=== PATIENT | female | born 1945 | race Caucasian/White ===

== ENCOUNTER → 2017-01-05 | Outpatient (CLI) | payer BC ==
[~2017-01-05] MED LIST: AMLO-110 PO; ATOR-22 PO; CALC-20 PO; CYCL5TAB PO; FLV1 PO; HYDR0.5T PO; HYDR25TA4 PO; METH2.5T PO; MULT-506 PO; OMEP40CA PO; POTA20TA16 PO; PRD/1 PO; PRED-301 PO; RMCI IV; TRAM-10 PO
[2017-01-05 16:11] LABS: BASO % 0.7 %; BASO ABS # 0.05 K/uL (0-0.2); COMPLETE YES; EOS % 3.5 %; HEMATOCRIT 43.7 % (37-47); IG% 0.4 %; LYMPH % 36.3 %; LYMPH ABS # 2.78 K/uL (1.2-3.4); MEAN CELL VOLUME 90.3 fL (80-100); MEAN CORPUSCULAR HEMOGLOBIN 30.4 pg (25-34); MEAN CORPUSCULAR HGB CONC 33.6 g/dl (32-36); MEAN PLATELET VOLUME 12.3 fL (7.4-10.4); NEUT % 51.1 %; PLATELET COUNT 227 K/uL (130-400); RED BLOOD COUNT 4.84 M/uL (4.2-5.4); WHITE BLOOD COUNT 7.65 K/uL (4.8-10.8)
[2017-01-05 18:10] LABS: ALT/SGPT 29 U/L (12-78); AST/SGOT 21 U/L (15-37); BLOOD UREA NITROGEN 26 mg/dl (7-18); BUN/CREATININE RATIO 18.7 (10-20); CALCIUM 9.3 mg/dl (8.5-10.1); CARBON DIOXIDE 28 mmol/L (21-32); CHLORIDE 108 mmol/L (98-107); CHOLESTEROL 193 mg/dl (0-200); GLUCOSE 85 mg/dl (70-99); POTASSIUM 3.6 mmol/L (3.5-5.1); SODIUM 143 mmol/L (136-145)
[2017-01-05 18:15] LABS: ALB/GLOB RATIO 1.2 (0.9-2); ALKALINE PHOSPHATASE 49 U/L (45-117); CHOLESTEROL/HDL RATIO 2.8; HDL CHOLESTEROL 70 mg/dl; LDL CHOLESTEROL CALCULATED 97 mg/dl; TRIGLYCERIDES 131 mg/dl (0-150); VERY LOW DENSITY LIPOPROT CALC 26 mg/dl
== END | disposition home or self-care (01) ==
LOC: C.LABBC 10:27
PROVIDERS: ATTEND Family Medicine
DX: E78.00 Pure hypercholesterolemia, unspecified (principal); I10 Essential (primary) hypertension; K21.9 Gastro-esophageal reflux disease without esophagitis; M85.80 Other specified disorders of bone density and structure, unspecified site; M06.9 Rheumatoid arthritis, unspecified

== ENCOUNTER → 2017-04-03 | Outpatient (CLI) | payer BC ==
--- NOTE | 2017-04-05 12:34 | MAMMOGRAPHY REPORT ---
BILATERAL DIGITAL SCREENING MAMMOGRAM WITH CAD: 04/03/2017 CLINICAL HISTORY: Routine screening. Patient has no complaints. TECHNIQUE: Bilateral CC, MLO and left XCCL views were obtained. Current study was also evaluated wit h a Computer Aided Detection (CAD) system. COMPARISON: Comparison is made to exams dated: 03/22/2016 mammogram, 03/18/2015 mammogram, 09/10/2013 mammogram, 09/03/2013 mammogram, 08/29/2012 mammogram, and 08/09/2011 mammogram - [facility]. BREAST COMPOSITION: There are scattered areas of fibroglandular density in both breasts. 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 A stable metallic biopsy marker in the le ft upper outer quadrant. No new suspicious mass, architectural distortion or cluster of suspicious m icrocalcifications is seen. IMPRESSION: ACR BI-RADS CATEGORY 1: NEGATIVE There is no mammographic evidence of malignancy. A 1 year screening mammogram is recommended. The pa tient will receive written notification of the results. Approximately 10% of breast cancers are not detected with mammography. A negative mammographic report should not delay biopsy if a clinically suggestive mass is present. Mercedez Luna M.D. ay/:04/03/2017 15:31:23 Credit And Collections Analyst: Zehra KELLY(Heri)(Tammie)(BD), [facility] letter sent: Normal 1/2 BI-RADS Code: ACR BI-RADS Category 1: Negative
== END | disposition home or self-care (01) ==
LOC: C.MAMM 14:52
PROVIDERS: ATTEND Obstetrics & Gynecology
DX: Z12.31 Encounter for screening mammogram for malignant neoplasm of breast (principal)

== ENCOUNTER → 2017-05-15 | Outpatient (CLI) | payer BC | END | disposition home or self-care (01) | LOC: C.PAPS 15:59 | PROVIDERS: ATTEND Obstetrics & Gynecology | DX: Z01.419 Encounter for gynecological examination (general) (routine) without abnormal findings (principal) ==

== ENCOUNTER → 2017-06-12 | Outpatient (CLI) | payer BC ==
[2017-06-12 17:23] LABS: HEMATOCRIT 45.8 % (37-47); MEAN CELL VOLUME 91.1 fL (80-100); MEAN CORPUSCULAR HEMOGLOBIN 29.4 pg (25-34); MEAN CORPUSCULAR HGB CONC 32.3 g/dl (32-36); MEAN PLATELET VOLUME 12.5 fL (7.4-10.4); PLATELET COUNT 237 K/uL (130-400); RED BLOOD COUNT 5.03 M/uL (4.2-5.4); WHITE BLOOD COUNT 9.31 K/uL (4.8-10.8)
== END | disposition home or self-care (01) ==
LOC: C.LABPVFM 15:28
PROVIDERS: ATTEND Internal Medicine
DX: M06.09 Rheumatoid arthritis without rheumatoid factor, multiple sites (principal)

== ENCOUNTER → 2017-07-18 | Outpatient (CLI) | payer BC ==
[2017-07-18 14:02] LABS: ALKALINE PHOSPHATASE 53 U/L (45-117); ALT/SGPT 28 U/L (12-78); AST/SGOT 20 U/L (15-37); BLOOD UREA NITROGEN 19 mg/dl (7-18); BUN/CREATININE RATIO 15.7 (10-20); CALCIUM 9.6 mg/dl (8.5-10.1); CARBON DIOXIDE 27 mmol/L (21-32); CHLORIDE 108 mmol/L (98-107); CHOLESTEROL 183 mg/dl (0-200); CHOLESTEROL/HDL RATIO 2.9; CREATININE 1.21 mg/dl (0.60-1.20); GLUCOSE 84 mg/dl (70-99); HDL CHOLESTEROL 63 mg/dl; LDL CHOLESTEROL CALCULATED 93 mg/dl; POTASSIUM 3.4 mmol/L (3.5-5.1); SODIUM 142 mmol/L (136-145); TRIGLYCERIDES 136 mg/dl (0-150); VERY LOW DENSITY LIPOPROT CALC 27 mg/dl
== END | disposition home or self-care (01) ==
LOC: C.LABPVFM 10:18
PROVIDERS: ATTEND Family Medicine
DX: M06.9 Rheumatoid arthritis, unspecified (principal); I10 Essential (primary) hypertension; E78.00 Pure hypercholesterolemia, unspecified; E87.6 Hypokalemia; K21.9 Gastro-esophageal reflux disease without esophagitis; M25.551 Pain in right hip

== ENCOUNTER → 2017-12-27 | Outpatient (CLI) | payer BC ==
[2017-12-27 16:40] LABS: ALBUMIN 3.5 gm/dl (3.4-5.0); ALT/SGPT 27 U/L (12-78); AST/SGOT 23 U/L (15-37); BLOOD UREA NITROGEN 22 mg/dl (7-18); CALCIUM 9.8 mg/dl (8.5-10.1); CARBON DIOXIDE 29 mmol/L (21-32); CREATININE 1.33 mg/dl (0.60-1.20); GLUCOSE 92 mg/dl (70-99); POTASSIUM 3.8 mmol/L (3.5-5.1); SODIUM 139 mmol/L (136-145)
[2017-12-27 16:44] LABS: ALKALINE PHOSPHATASE 57 U/L (45-117); CHOLESTEROL 182 mg/dl (0-200); LDL CHOLESTEROL CALCULATED 90 mg/dl; TOTAL PROTEIN 7.2 gm/dl (6.4-8.2)
== END | disposition home or self-care (01) ==
LOC: C.LABPVFM 09:17
PROVIDERS: ATTEND Family Medicine
DX: I10 Essential (primary) hypertension (principal); E78.00 Pure hypercholesterolemia, unspecified; E87.6 Hypokalemia; K21.9 Gastro-esophageal reflux disease without esophagitis; Z12.11 Encounter for screening for malignant neoplasm of colon

== ENCOUNTER → 2018-05-23 | Outpatient (CLI) | payer BC ==
[~2018-05-23] MED LIST changes: -AMLO-110 PO; +AMLO5TAB3 PO; +POTA-639 PO; -POTA20TA16 PO
== END | disposition home or self-care (01) ==
LOC: C.PAPS 14:06
PROVIDERS: ATTEND Obstetrics & Gynecology
DX: Z01.419 Encounter for gynecological examination (general) (routine) without abnormal findings (principal)

== ENCOUNTER 2022-04-22 10:08 | Observation (INO) ==
--- NOTE | 2022-03-17 10:14 | PAT Medication Instructions ---
Medication Instructions Date of Service March 17, 2022 Home Medications calcium carbonate 600 mg-vitamin D3 5 mcg (200 unit) capsule (Calcium 600 + D(3)) 1 tab PO BID methotrexate sodium 2.5 mg tablet 3 tab PO WK omeprazole 20 mg tablet,delayed release 20 mg PO BID folic acid 1 mg tablet 1 mg PO 6XWK multivitamin 1 tab PO QAM prednisone 5 mg tablet 5 mg PO QAM infliximab 100 mg intravenous solution (Remicade) 400 mg IV UD PRN hydroxychloroquine 200 mg tablet 200 - 300 mg PO UD amlodipine 5 mg tablet 5 mg PO QAM nfejpwm-tvpdsbmckgrwx-pkuvfmcq 250 mg-250 mg-65 mg tablet (Excedrin Extra Strength) 1 tab PO UD PRN atorvastatin 10 mg tablet 10 mg PO QAM hydrochlorothiazide 12.5 mg tablet 12.5 mg PO QAM potassium chloride 20 mEq tablet,extended release(part/cryst) (Klor-Con M) 20 meq PO QAM ASK your surgeon for instructions apugrei-ajkmamwobpnif-rutyjddl 250 mg-250 mg-65 mg tablet (Excedrin Extra Strength) 1 tab PO UD PRN ASK your prescriber and surgeon methotrexate sodium 2.5 mg tablet 3 tab PO WK hydroxychloroquine 200 mg tablet 200 - 300 mg PO UD infliximab 100 mg intravenous solution (Remicade) 400 mg IV UD PRN DO NOT take the morning of surgery calcium carbonate 600 mg-vitamin D3 5 mcg (200 unit) capsule (Calcium 600 + D(3)) 1 tab PO BID folic acid 1 mg tablet 1 mg PO 6XWK multivitamin 1 tab PO QAM hydrochlorothiazide 12.5 mg tablet 12.5 mg PO QAM potassium chloride 20 mEq tablet,extended release(part/cryst) (Klor-Con M) 20 meq PO QAM Take morning of surgery With a small sip of water, OTHERWISE NOTHING TO EAT OR DRINK AFTER MIDNIGHT: omeprazole 20 mg tablet,delayed release 20 mg PO BID prednisone 5 mg tablet 5 mg PO QAM amlodipine 5 mg tablet 5 mg PO QAM atorvastatin 10 mg tablet 10 mg PO QAM Take evening before surgery calcium carbonate 600 mg-vitamin D3 5 mcg (200 unit) capsule (Calcium 600 + D(3)) 1 tab PO BID omeprazole 20 mg tablet,delayed release 20 mg PO BID Other Notes If you have any questions please call us at [phone] or [phone] or [phone] or [phone]
--- NOTE | 2022-03-22 14:15 | Anesthesiology Consultation ---
Date of Service March 22, 2022 Assessment & Plan (1) Encounter for pre-operative examination: COVID screening: Per assessment on 03/22: No known COVID-19 positive contacts or current COVID-19 related symptoms. Travel screen negative. Patient vaccinated. Surgeon arranging preop COVID testing. Awaiting results. Chart Review Chart Review: Acceptable Risk for Surgery and Patient seen in Pre Admission Testing Teaching & Discussion Pre-Anesthesia Teaching/Discussion Notes: Instructed NPO after midnight before surgery,except medications with 15 cc of water. Medication instructions provided according to the PAT guidelines. History Surgery Operation Date: 04/22/22 12:25 Proposed Procedures p Left Total Knee Arthroplasty - Malcolm Fisher, Height/Weight Height: 5 ft 3 in Weight: 93.6 kg Allergies Allergy/AdvReac Type Severity Reaction Status Date / Time No Known Allergies Allergy Verified 03/16/22 14:11 Medications Home Medications Medication Instructions Recorded Confirmed Last Taken calcium carbonate 600 mg-vitamin 1 tab PO BID 08/30/18 03/16/22 09/12/18 09:00 D3 5 mcg (200 unit) capsule (Calcium 600 + D(3)) methotrexate sodium 2.5 mg tablet 3 tab PO WK 08/30/18 03/16/22 09/08/18 09:00 omeprazole 20 mg tablet,delayed 20 mg PO BID 08/30/18 03/16/22 09/13/18 11:00 release folic acid 1 mg tablet 1 mg PO 6XWK tab 05/21/19 03/16/22 Unknown multivitamin 1 tab PO QAM tab 05/21/19 03/16/22 Unknown prednisone 5 mg tablet 5 mg PO QAM 06/27/19 03/16/22 Unknown infliximab 100 mg intravenous 400 mg IV UD PRN ea 09/16/19 03/16/22 03/10/22 solution (Remicade) hydroxychloroquine 200 mg tablet 200 - 300 mg PO UD 06/11/20 03/16/22 Unknown amlodipine 5 mg tablet 5 mg PO QAM 03/16/22 03/16/22 Unknown vpihwgq-aswrryukarkcp-gkwlqmhz 250 1 tab PO UD PRN 03/16/22 03/16/22 Unknown mg-250 mg-65 mg tablet (Excedrin Extra Strength) atorvastatin 10 mg tablet 10 mg PO QAM 03/16/22 03/16/22 Unknown hydrochlorothiazide 12.5 mg tablet 12.5 mg PO QAM 03/16/22 03/16/22 Unknown potassium chloride 20 mEq 20 meq PO QAM 03/16/22 03/16/22 Unknown tablet,extended release(part/cryst) (Klor-Con M) Wheeled Walker #1 ea 03/22/22 03/22/22 Unknown Past Medical History Medical History Acid reflux Eye problem Hx mild right retinal scar that "healed itself" H/O bone scan Hx questionable findings, previously on Fosamax High cholesterol History of kidney disease CKD Stage III, Follows with [facility] nephro Hx LUCA r/t e. coli infection HTN (hypertension) Lupus Possible Pericarditis Hx Rheumatoid arthritis No neck involvement, full cervical extension/flexion ROM Exercise / Class Metabolic Activity II 4-5 Yardwork/Stairs/Walk up hill Past Family History Family History Mother Family history of diabetes mellitus Coronary heart disease Kidney disease Hx of CABG Grandmother Family history of diabetes mellitus maternal Father Dementia Prostate cancer Sister Coronary heart disease Denies family history of Ovarian cancer Myocardial infarction Breast cancer Colorectal cancer Past Surgical History Surgical History Dilation of esophagus History of bilateral cataract extraction History of colonoscopy History of esophagogastroduodenoscopy (EGD) History of facial surgery 1970s plastic surgery History of tonsillectomy and adenoidectomy Hx of left breast biopsy Benign cyst Status post lung surgery "undetermined-found scarring from arthritis" Past Anesthesia History No Hx of Anesthesia Complications and No Family Hx of Anesthesia Complications History of PONV No Hx of PONV and Hx of Motion Sickness (Rare) Social History Smoking Status: Never smoker Do You Dip or Chew Tobacco: No Hx Alcohol Use: Yes Alcohol type: beer alcohol intake frequency: holidays/special occasions only (Very sporadic, special occasionals) Hx Substance Use: No substance use type: does not use Review of Systems Patient denies chest pain, shortness of breath, dyspnea on exertion, fever, chills, cough, wheezing, palpitations. Physical Exam Vital Signs VITALS BP 115/73 P 66 TEMP 98.7 SP02 95%RA RESP 18 PHYSICAL Full cervical extension range of motion. Full TMJ range of motion. TMD 3 finger breaths Mallampati Score 3 Dentition: intact, several crowns Lungs: clear throughout to auscultation Cardiac: regular rate and rhythm, no murmurs noted Spine: normal Carotid arteries: negative bruit Extremities: no edema Lab Results Anesthesia Preop Results Results Anesthesia Widget: WBC 10.50 K/uL (4.8-10.8) 03/22/22 Hgb 13.7 g/dL (12.0-16.0) 03/22/22 Hct 42.3 % (37-47) 03/22/22 Plt 217 K/uL (130-400) 03/22/22 Na 141 mmol/L (136-145) 03/14/22 K 3.8 mmol/L (3.5-5.1) 03/14/22 Cl 109 mmol/L (98-107) H 03/14/22 CO2 26 mmol/L (21-32) 03/14/22 BUN 21 mg/dl (6-23) 03/14/22 Creat 1.25 mg/dl (0.6-1.2) H 03/14/22 Glucose Level 84 mg/dl (70-99(Fasting)) 03/14/22 PT 11.0 Seconds (9.0-12.0) 03/22/22 PTT 25.0 Seconds (21.0-31.0) 03/22/22 INR 1.0 (0.9-1.1) 03/22/22 Urine Color Yellow 03/14/22 Urine Appearance Clear (Clear) 03/14/22 Urine pH 5.5 (4.5-7.5) 03/14/22 Urine Specific [place] 1.008 (1.000-1.030) 03/14/22 Urine Protein Negative (Negative) 03/14/22 Urine Glucose (UA) Negative (Negative) 03/14/22 Urine Ketones Negative (Negative) 03/14/22 Urine Blood Negative (Negative) 03/14/22 Urine Nitrite Negative (Negative) 03/14/22 Urine Bilirubin Negative (Negative) 03/14/22 Urine Urobilinogen Negative (Negative) 03/14/22 Urine Leukocyte Esterase 1+ (Negative) H 03/14/22 Urine WBC (Auto) 5-10 /hpf (0-5) H 03/14/22 Urine RBC (Auto) 0-4 /hpf (0-4) 03/14/22 Urine Hyaline Casts (Auto) 1-5 /lpf (0-5) 03/14/22 Urine Epithelial Cells (Auto) 10-20 /lpf (0-5) H 03/14/22 Urine Bacteria (Auto) Negative (Negative) 03/14/22 Blood Type A Negative 03/22/22 Antibody Screen NEGATIVE 03/22/22 Testing Electrocardiogram Date: 03/22/22 NSR at 66bpm. NS TWA. Chest X-Ray Date: 03/22/22 FINDINGS: Cardiac silhouette is enlarged. Right lung volume loss with calcified pleural plaques and pleural parenchymal scarring with pleural thickening redemonstrated. No pneumothorax, definite pleural effusion or overt pulmonary edema. No airspace consolidation typical for pneumonia. Degenerative changes of the shoulders and spine. IMPRESSION: Cardiomegaly without acute process. Right lung volume loss with calcified right-sided pleural plaques redemonstrated.
--- NOTE | 2022-04-21 09:01 | History & Physical Report ---
Date of Service April 21, 2022 Assessment & Plan (1) Osteoarthritis of left knee: We will proceed with a left total knee arthroplasty. Postoperatively she will be started on aspirin for DVT prophylaxis and kept overnight in the hospital for postop medical management. She plans to use energy physical therapy upon discharge. History of Present Illness Chief Complaint: Osteoarthritis of the left knee. Primary Care Provider: Latanya Quinonez MD Milka is a pleasant 76-year-old female who has been dealing with pain and instability of her leftknee. X-rays have shown advancedarthritis of her left knee. After failing extensive conservativetreatment, she has elected to proceed with a left total knee arthroplasty. . Allergies Allergy/AdvReac Type Severity Reaction Status Date / Time No Known Allergies Allergy Verified 04/08/22 08:12 Home Medications Medication Instructions Recorded Confirmed Type calcium carbonate 600 mg-vitamin 1 tab PO BID 08/30/18 04/08/22 History D3 5 mcg (200 unit) capsule (Calcium 600 + D(3)) methotrexate sodium 2.5 mg tablet 3 tab PO WK 08/30/18 04/08/22 History omeprazole 20 mg tablet,delayed 20 mg PO BID 08/30/18 04/08/22 History release folic acid 1 mg tablet 1 mg PO 6XWK 05/21/19 04/08/22 History multivitamin 1 tab PO QAM 05/21/19 04/08/22 History infliximab 100 mg intravenous 400 mg IV UD PRN RHEUMATOID 09/16/19 04/08/22 History solution (Remicade) ARTHRITIS hydroxychloroquine 200 mg tablet 200 - 300 mg PO UD 06/11/20 04/08/22 History amlodipine 5 mg tablet 5 mg PO QAM 03/16/22 04/08/22 History ldzeuni-hirxcfkadtxfm-xiystcjn 250 1 tab PO UD PRN KNEE PAIN 03/16/22 04/08/22 History mg-250 mg-65 mg tablet (Excedrin Extra Strength) atorvastatin 10 mg tablet 10 mg PO QAM 03/16/22 04/08/22 History hydrochlorothiazide 12.5 mg tablet 12.5 mg PO QAM 03/16/22 04/08/22 History potassium chloride 20 mEq 20 meq PO QAM 03/16/22 04/08/22 History tablet,extended release(part/cryst) (Klor-Con M) Emma Walker #1 ea 03/22/22 04/08/22 Rx prednisone 50 mg tablet 50 mg PO DAILY #5 tabs 04/08/22 Rx Past Med/Surg History Medical History Acid reflux Eye problem Hx mild right retinal scar that "healed itself" H/O bone scan Hx questionable findings, previously on Fosamax High cholesterol History of kidney disease CKD Stage III, Follows with [facility] nephro Hx LUCA r/t e. coli infection HTN (hypertension) Lupus Possible Pericarditis Hx Rheumatoid arthritis No neck involvement, full cervical extension/flexion ROM Surgical History Dilation of esophagus History of bilateral cataract extraction History of colonoscopy History of esophagogastroduodenoscopy (EGD) History of facial surgery 1970s plastic surgery History of tonsillectomy and adenoidectomy Hx of left breast biopsy Benign cyst Status post lung surgery "undetermined-found scarring from arthritis" Family History Mother Family history of diabetes mellitus Coronary heart disease Kidney disease Hx of CABG Grandmother Family history of diabetes mellitus maternal Father Dementia Prostate cancer Sister Coronary heart disease Denies family history of Ovarian cancer Myocardial infarction Breast cancer Colorectal cancer Social History Smoking Status: Never smoker Second Hand Exposure: No; Hx Alcohol Use: Yes Alcohol type: beer Hx Substance Use: No Preferred Language: Malawian Communication Ability: Effective Used Car Renovator Required: No Beliefs That Will Affect Care: None marital status: Current Living Situation: Spouse current occupational status: retired Feels Safe at Home: Yes caffeine: Yes Dental Care, Regularly: Yes Physical Activity Frequency: 1-2 Times per Week Seatbelt Use: always Sunscreen Use: Yes Assistive Devices: None Review of Systems All systems reviewed & are unremarkable except as noted in HPI & below. Physical Exam On physical examination of the left knee, she has a slight valgus deformity. She has range of motion of 0 to 120 degrees. She has no instability.. Constitutional WD/WN, vitals as above Eyes PERRL, conjunctivae normal, anicteric sclerae ENMT external ear and nose normal, oropharynx normal Neck trachea midline, no thyromegaly Respiratory normal respiratory effort, lungs clear to auscultation Cardiovascular RRR, no murmur, no edema Gastrointestinal (Abdomen) normal bowel sounds, soft, nontender, no hepatosplenomegaly Skin no rashes, warm and dry Psychiatric A+Ox3, euthymic affect Results & Data Results & Data Laboratory Results . Diagnostic Findings X-rays of the left knee show advanced osteoarthritis with joint space narrowing, osteophyte formation, and jave-ld-rhsq articulation. PG Care Time/CCT Total # of Minutes Spent Total Time Spent with Patient: Total time spent is greater than 50% in coordination of care (as documented) at patient's floor/unit and/or counseling patient: Coding Level of Care Code None Diagnoses Osteoarthritis of left knee M17.12
[~2022-04-22 10:08] MED LIST changes: +ACETAMINOPHEN 500 MG TAB PO SCH; -AMLO5TAB3 PO; -ATOR-22 PO; +BUPIVACAINE 0.5 % 5 MG/1 ML PF 10ML VIAL ONE; -CALC-20 PO; -CYCL5TAB PO; +EPINEPHrine INJ 1 MG/ML AMP ONE; +FAMOTIDINE 20 MG TAB PO SCH; -FLV1 PO; +GABAPENTIN 300 MG CAP PO SCH; -HYDR0.5T PO; -HYDR25TA4 PO; +Ketorolac (*for OR use only*) 30 MG, dexAMETHasone 4 MG, KETAMINE HCL (**OR use only) 1... INFIL SCH; +LR 500ML BOLUS, THEN 15ML/HR IV SCH; +LR 60ML/HR IV SCH; -METH2.5T PO; -MULT-506 PO; -OMEP40CA PO; -POTA-639 PO; -PRD/1 PO; -PRED-301 PO; -RMCI IV; +ROPIVACAINE 0.5% 5 MG/ML 30 ML VIAL ONE; -TRAM-10 PO; +TRANEXAMIC ACID 1,000 MG **IV Intra-op IV SCH; +TRANEXAMIC ACID 1,000 MG **IV Pre-op IV SCH; +ceFAZolin 2000MG 2,000 MG/15 ML SYR IV SCH; +dexAMETHasone 4 MG TAB PO SCH
--- NOTE | 2022-04-22 10:21 | History & Physical Bridge Note ---
Date of Service April 22, 2022 History & Physical Bridge Note I have examined the patient, reviewed the History & Physical and in the interval since the performance of the History & Physical I have noted the following changes of clinical significance: no changes noted
[2022-04-22] MEDS ORDERED: fentaNYL citrate 100 MCG/2 ML VIAL ONE (10:40)
[2022-04-22] MEDS ORDERED: LIDOCAINE 2% MPF LOCAL 5 ML VIAL INFIL ONE (10:40)
[2022-04-22] MEDS ORDERED: MIDAZOLAM HCL 1 MG/ML 2ML VIAL ONE (10:40)
[2022-04-22] MEDS ORDERED: PROPOFOL IV EMULSION 10 MG/ML 20 ML VIAL IV ONE ×2 (10:40)
[2022-04-22] MEDS ORDERED: ONDANSETRON INJ 2 MG/ML 2 ML VIAL IV PRN ×2 (11:50→16:08)
[2022-04-22] MEDS ORDERED: MEPERIDINE HCL 25 MG/ML CARP/VIAL IV PRN (11:50)
[2022-04-22] MEDS ORDERED: ATROPINE SULFATE 0.1 MG/ML 10ML SYR IV PRN (11:50)
[2022-04-22] MEDS ORDERED: fentaNYL citrate 100 MCG/2 ML VIAL IV PRN (11:50)
[2022-04-22] MEDS ORDERED: HYDROmorphone INJ 1 MG/ML SYRINGE IV PRN (11:50)
[2022-04-22] MEDS ORDERED: ePHEDrine sulfate 50 MG/ML AMP IV PRN (11:50)
[2022-04-22] MEDS ORDERED: LABETALOL HCL IV 5 MG/ML 20ML IV PRN (11:50)
[2022-04-22] MEDS ORDERED: PHENYLEPHRINE 100MCG/ML 5ML SYR IV PRN (11:50)
[2022-04-22] MEDS ORDERED: ORTHO JOINT ANESTHETIC ONE (12:08)
--- NOTE | 2022-04-22 14:03 | Operative Report ---
PG Post Operative Report Pre & Post Diagnosis Operation Date: 04/22/22 12:55 Pre-Op Diagnosis: Degenerative Joint Disease Left Knee Post-Op Diagnosis: Degenerative Joint Disease Left Knee I identified the patient and participated in the time-out.: Yes Procedure Operation Date: 04/22/22 12:55 Actual Procedures p Left Total Knee Arthroplasty(Left) - Malcolm Fisher DO Surgeon Malcolm Fisher DO Clothes Wringer Trevor Bush PA-C Estimated Blood Loss 10 Findings Consistent with Post-Op Diagnosis Specimens Left femoral and tibial bone Description of Procedure Implants used: I used a Coral Persona total knee arthroplasty system with a size 5 standard PS femur, C tibia, 31 oval patella, and a size 14 CPS polyethylene bearing. All components were cemented in place with Biomet cement. Milka arrived [facility] for the above procedure. She was seen in the preoperative holding area and the operative extremity was identified and signed. She was given a preoperative antibiotic, TXA, a spinal anesthetic and an adductor nerve block. She was taken back to the operating room and laid on the table in supine position. She was given basic sedation. The operative knee was then prepped and draped in sterile fashion. A timeout was done, and the patient and the operative extremity was properly identified. A midline incision was made directly over the patella. Dissection was taken down to the extensor mechanism. A subvastus arthrotomy was used. The medial retinaculum was released and the fat pad was mostly excised. The knee was flexed and the ACL, PCL, and meniscus were removed. A drill was sent down the center of the femoral canal followed by an intramedullary dulce. Off that dulce a distal femoral cutting block was placed. 9 mm was resected off the distal femur at 5 of valgus. A posterior referencing AP sizing guide was then placed on the distal femur. The femur measured to be a size 5. 2 drill holes were placed in 3 of external rotation. A 4-in-1 cutting block was then impacted into place. Anterior, posterior, and chamfer cuts were then made. The proximal tibia was then exposed. An external tibial alignment guide was placed. A tibial cut guide was then anchored in place and the proximal tibia was then resected. The posterior aspect of the knee was then opened up and any additional meniscus fragments and osteophytes were removed. The tibia measured to be a size C. The tibial plate was then placed in the appropriate rotation and the tibia was drilled and punched. Trial components were then placed. I used a size 14 CPS polyethylene insert. The knee was brought through a full range of motion and felt to be stable. The peg holes for the femoral component were then drilled. The patella was then everted and 9 mm was resected off the posterior aspect of the patella. The patella measured to be a size 31 oval. 3 peg holes were then drilled. A trial patella was placed. The knee was once again brought through a full range of motion and felt to be stable. Trial components were then removed. The surrounding soft tissues were injected with 100 cc of an orthopedic pain control cocktail. All components were then cemented into place with Biomet cement. The final polyethylene insert was then snapped into place. Once cement was dry the tourniquet was deflated. Hemostasis was obtained. A dilute betadyne lavage was then done for 3 minutes. The joint was then irrigated with normal saline solution. The subvastus arthrotomy was then closed with #1 Vicryl suture. The skin was closed with 2-0 Vicryl, 3-0V lock suture, and cordell. A soft compressive dressing was placed. She was then transferred to a hospital bed and taken to the postanesthesia care unit in stable condition. She tolerated the procedure well. Trevor Bush PA-C, was present for the entire procedure. He was critical for patient positioning, prepping, draping, retraction exposure, wound closure and application of sterile dressing. I attest to the content of the Intraoperative Record and any orders documented therein. Any exceptions are noted below.
[2022-04-22] MEDS ORDERED: ONDANSETRON INJ 2 MG/ML 2 ML VIAL ONE (14:19)
[2022-04-22] MEDS ORDERED: DEXAMETHASONE SOD INJ 4 MG/ML VIAL ONE (14:19)
--- NOTE | 2022-04-22 15:24 | Operative Report ---
Post Operative Report Pre & Post Diagnosis Operation Date: 04/22/22 12:55 Pre-Op Diagnosis: Degenerative Joint Disease Left Knee Post-Op Diagnosis: Degenerative Joint Disease Left Knee I identified the patient and participated in the time-out.: Yes Procedure Operation Date: 04/22/22 12:55 Actual Procedures p Left Total Knee Arthroplasty(Left) - Malcolm Fisher DO Surgeon Caroline Fisher MD Facility Manager Trevor Bush PA-C, Yesi JETT Estimated Blood Loss 10 Findings Consistent with Post-Op Diagnosis Consistent with post op diagnosis. Specimens No specimens. Description of Procedure I participated in prepping dressing and assisted Dr. Fisher during the procedure. Please see Dr. Fisher note. I attest to the content of the Intraoperative Record and any orders documented therein. Any exceptions are noted below.
--- NOTE | 2022-04-22 15:34 | Anesthesiology Progress Note ---
Date of Service April 22, 2022 Anesthesia Post Procedure Vital Signs Vital Signs: Temp Pulse Pulse Resp BP Pulse Ox O2 Del Method 04/22/22 15:15 73 17 130/67 95 Nasal Cannula 04/22/22 15:30 73 13 160/68 H 92 Nasal Cannula 04/22/22 15:00 36.5 C 74 15 129/68 94 Nasal Cannula 04/22/22 14:45 72 16 120/56 L 95 Oxymask 04/22/22 14:35 75 17 124/54 L 97 Oxymask 04/22/22 14:29 36.8 C 79 17 110/55 L 98 Oxymask 04/22/22 10:42 36.6 C 73 20 144/76 H 95 Room Air O2 Flow Rate 04/22/22 15:15 2 04/22/22 15:30 2 04/22/22 15:00 2 04/22/22 14:45 4 04/22/22 14:35 11 04/22/22 14:29 11 04/22/22 10:42 Transfer of Care Handoff Completed per policy Notes Mental Status: alert / awake / arousable and participated in evaluation Patient Amnestic to Procedure: Yes Nausea / Vomiting: adequately controlled Pain: adequately controlled Airway Patency, RR, SpO2: stable & adequate BP & HR: stable & adequate Hydration State: stable & adequate Neuraxial Anesthesia: was administered and sensory block is resolving Anesthetic Complications: no major complications apparent and Pt Satisfied with anesthetic care
[2022-04-22] MEDS ORDERED: bisacodyL 10 MG SUPP PR PRN (16:08)
[2022-04-22] MEDS ORDERED: NALOXONE HCL 0.4 MG/1 ML VIAL/CARP IV PRN (16:08)
[2022-04-22] MEDS ORDERED: NO NSAIDS SCH (16:08)
[2022-04-22] MEDS ORDERED: MAGNESIUM HYDROXIDE SUSP 30 ML UDC PO PRN (16:08)
[2022-04-22] MEDS ORDERED: METOCLOPRAMIDE HCL INJ 5 MG/ML 2 ML VIAL IV PRN (16:08)
[2022-04-22] MEDS ORDERED: HYDROmorphone INJ 0.5 MG/0.5 ML SYR IV PRN (16:08)
[2022-04-22] MEDS: SODIUM CHLORIDE 0.9% 1000ML 1,000 ML IV SCH (17:20)
[2022-04-22] MEDS ORDERED: SENNA 8.6 MG TAB PO SCH (21:00)
[2022-04-22] MEDS: ceFAZolin 2000MG 2,000 MG/15 ML SYR IV SCH (21:03)
[2022-04-22] MEDS: ASPIRIN 81 MG ECTAB PO SCH (21:04)
[2022-04-22] MEDS: CALCIUM 600MG + VIT D 400 IU TAB PO SCH (21:04)
[2022-04-22] MEDS: DOCUSATE SODIUM 100 MG CAP PO SCH (21:04)
[2022-04-22] MEDS: ACETAMINOPHEN 500 MG TAB PO SCH (21:04)
[2022-04-22] MEDS: PANTOprazole 40 MG TAB PO SCH (21:05)
--- NOTE | 2022-04-22 22:08 | XRay Report ---
TWO VIEWS LEFT KNEE CLINICAL HISTORY: Postoperative examination. FINDINGS: AP and crosstable lateral portable views of the left knee are obtained. A left knee arthrop lasty is in near anatomic alignment. There has been undersurface remodeling of the patella. No acute fracture is seen. There are expected postoperative changes around the knee including skin clips, soft tissue edema, and subcutaneous gas. IMPRESSION: Expected postoperative changes status post left knee arthroplasty. No acute fracture is s een. ACT 112: Negative or not required by law. Electronically signed by: Gabriel Shen M.D. 04/22/2022 10:07 PM
[2022-04-23] MEDS: oxyCODONE HCL IR 5 MG TAB (IMMEDIATE RELEASE) PO PRN ×2 (02:15→13:50)
[2022-04-23] MEDS: SODIUM CHLORIDE 0.9% 1000ML 1,000 ML IV SCH (03:00)
[2022-04-23] MEDS: ceFAZolin 2000MG 2,000 MG/15 ML SYR IV SCH (05:01)
[2022-04-23] MEDS: ACETAMINOPHEN 500 MG TAB PO SCH ×2 (05:01→13:50)
[2022-04-23 06:29] LABS: Hematocrit (blood only) 38.4 % (34.1-44.9); Hemoglobin 12.4 g/dl (12.0-16.0); Mean Corpuscular Hemoglobin 29.5 pg (25.0-34.0); Mean Corpuscular Hgb Conc 32.3 g/dL (32.0-36.0); Mean Corpuscular Volume 91.4 fL (80.0-100.0); Mean Platelet Volume 11.3 fL (9.4-12.3); Platelet Count 164 K/uL (130-400); RDW Coefficient of Variation 14.8 % (11.5-14.5); RDW Standard Deviation 49.2 fL (36.4-46.3); White Blood Count 21.56 K/ul (4.8-10.8)
[2022-04-23 07:03] LABS: BUN Creatinine Ratio 20.1 (10-20); Calcium 8.6 mg/dl (8.5-10.1); Creatinine Clr Calc Pharmacy 38.8 ml/min; Est GFR (African American) 44.8 ml/min; Est GFR (Non-African American) 38.7 ml/min; Potassium 4.1 mmol/L (3.5-5.1)
--- NOTE | 2022-04-23 08:16 | Orthopedic Progress Note ---
Date of Service April 23, 2022 Assessment & Plan (1) Status post left knee replacement: Overall she is doing very well. She is not having much pain in the left knee. She will be seen by physical therapy today for ambulation and range of motion exercises. She is on aspirin for DVT prophylaxis. She will be discharged home later today. She will follow-up with orthopedics in 2 weeks. Henny Jarquin was seen and examined at bedside this morning. Overall she is doing very well. She is not having much pain in the left knee. She has been up and ambulating to the bathroom. She has no complaints.. Review of Systems All systems reviewed & are unremarkable except as noted in HPI & below. Physical Exam On physical examination of the left knee, the dressing is clean and dry. She has active dorsiflexion plantarflexion of her left ankle. Sensation is intact throughout.. Results & Data Results & Data Laboratory Results . Diagnostic Findings Postoperative x-rays of the left knee show the prosthesis to be in anatomic alignment without any evidence of fracture, dislocation, or loosening. PG Care Time/CCT Total # of Minutes Spent Total Time Spent with Patient: Total time spent is greater than 50% in coordination of care (as documented) at patient's floor/unit and/or counseling patient: Coding Level of Care Code 57020 Post Operative Follow-Up Diagnoses Status post left knee replacement Z96.652
--- NOTE | 2022-04-23 08:19 | Discharge Summary ---
Date of Service April 23, 2022 Admission HPI (Per Admitting) Milka is a pleasant 76-year-old female who has been dealing with pain and instability of her leftknee. X-rays have shown advancedarthritis of her left knee. After failing extensive conservativetreatment, she has elected to proceed with a left total knee arthroplasty. . Admission Exam (Per Admitting) On physical examination of the left knee, she has a slight valgus deformity. She has range of motion of 0 to 120 degrees. She has no instability.. Principal Diagnosis Same as "Discharge Diagnosis" noted below under Discharge Instructions. Discharge Exam On physical examination of the left knee, the dressing is clean and dry. She has active dorsiflexion plantarflexion of her left ankle. Sensation is intact throughout.. Discharge Data Procedures Performed Operation Date: 04/22/22 12:55 Actual Procedures p Left Total Knee Arthroplasty(Left) - Malcolm Fisher DO Ordered Studies 04/22/22 05:00 US - OR guided needle placemen Routine Hospital Course (1) Status post left knee replacement: On April 22, 2022 Milka arrived at [facility] and underwent a left knee replaced without complication. She had a spinal anesthetic. Postoperatively she was started on aspirin for DVT prophylaxis and transferred to the general orthopedic floors. Her hospital course was uneventful. On postop day #1, her vital signs were stable and her pain was well controlled. She was able to participate well with physical therapy doing ambulation and range of motion exercises. She was then discharged home. She will follow-up with orthopedics in 2 weeks. PG Care Time/CCT Total # of Minutes Spent Total Time Spent with Patient: Total time spent is greater than 50% in coordination of care (as documented) at patient's floor/unit and/or counseling patient: Discharge Plan Discharge Items Patient Disposition: Home - Home Health Services Reason For Visit: DJD Left Knee Discharge Diagnosis: Left knee replacement Activity: Resume your previous activity Non-emergency contact: Surgeon Call non-emergency contact if: your wound has increased redness and your wound has increased drainage Follow-up/Referrals: Latanya Quinonez MD [Primary Care Provider] - Diet: Regular Addtl Attending Provider Instructions: Activity and Therapy Recommendations: * If you are using [facility] then therapy will be provided at your home until they feel you have accomplished all of your goals. * If you are using [facility] then Physical Therapy will be provided until they feel you are ready to start Outpatient Physical Therapy. * If you are not using home therapy then Outpatient Physical Therapy should start about 3-5 days from your day of surgery. Therapy will last about 6-10 weeks * It is important not to put a pillow under your knee when you are relaxing or sleeping. It is just as important to make sure you are getting your knee perfectly straight as it is to regain your knee bend. * You were shown a series of exercises in the hospital. Do these exercises three times each day including the exercises you were shown in physical therapy. * Get up and walk several times each day. For the first four weeks, try not to stand or walk for more than one hour at a time. If you do stand or walk for more than one hour, you will not hurt anything, but your leg will likely swell. * As you feel comfortable, you may change from the walker or crutches to a cane and then to independent walking. Medications: * Narcotic You will likely be sent home from the hospital with a prescription for the narcotic pain medication that worked best throughout your stay. * Aspirin Most patients will be required to take Aspirin 81mg twice a day for 6 weeks after surgery. This is obtained [id number] and a prescription is not necessary. * Other medications may be prescribed for specific circumstances. If you have any questions, please call the office at . * Resume previous home medications unless otherwise instructed TEDs/Elastic Stockings: The white elastic stockings help limit swelling and prevent blood clots from forming in your legs.~ The more you wear them, the more they work. Wear them for six weeks. Dressing Care: The dressing can be changed after physical therapy on postop day #1. Daily dry dressing changes for a few days, especially if the incision is still draining some. If the incision is not draining then you may leave the cordell open to air. If there is a little bit of drainage or if the cordell are getting stuck on your clothing then cover the incision with a dry dressing. The cordell will be removed at your 2 week follow-up appointment. Showering: You may shower 5 days from the day of surgery as long as the incision is no longer draining. You may shower with the cordell exposed. Let soapy water run over the cordell and pat them dry. Do not scrub or soak the incision. Things To Watch For: * Drainage from the incision site that occurs more than one week after your surgery. * Increased redness at the incision site. * Fever above 102 degrees Fahrenheit. * Unusual chest pain or shortness of breath. * Call [facility] at with any of the above problems Follow-Up Visit: Follow-up with Dr. Fisher's PA (Malcolm Wright) 2-3 weeks after your day of surgery. He will remove your cordell and answer any questions. If you have any additional questions or concerns, Dr Fisher is usually in the office at the same time and will be available An appointment was probably scheduled when you signed-up for surgery in the office. If you have any questions call Office Instructions: More detailed instructions as well as Frequently Asked Questions were provided in a folder by our office when you signed-up for surgery. Please review these instructions when you get home. If you have any further questions or concerns, please feel free to call the office at [phone] Pending Studies at Discharge: No Stand-Alone Forms: My [facility] [employer] Medications and DC Order Prescriptions: New aspirin 81 mg Tablet,Delayed Release (Dr/Ec) 81 mg PO BID 42 Days Qty: 84 0RF oxycodone-acetaminophen 5-325 mg tablet 1 tab PO Q6H PRN (Reason: pain) Qty: 30 0RF Continued hydroxychloroquine 200 mg tablet 200 - 300 mg PO UD Label Comments: 200 MG EVERY MORNING AND 1 TABLET MON, WED AND FRI IN THE EVENING Rx Instructions: takes BID on mon, wed, frid prednisone 50 mg tablet 50 mg PO DAILY Qty: 5 0RF Remicade 100 mg recon soln 400 mg IV UD PRN (Reason: RHEUMATOID ARTHRITIS) Rx Instructions: IV Q 6 weeks; folic acid 1 mg tablet 1 mg PO 6XWK Label Comments: EVERY DAY EXCEPT SAT multivitamin tablet 1 tab PO QAM (DME) Wheeled Walker Misc See Rx Instructions .MEDSUPPLY Qty: 1 0RF Rx Instructions: As directed methotrexate sodium 2.5 mg Tablet 3 tab PO WK Label Comments: SAT Calcium 600 + D(3) 600 mg calcium- 200 unit Capsule 1 tab PO BID omeprazole 20 mg Tablet,Delayed Release (Dr/Ec) 20 mg PO BID potassium chloride [Klor-Con M20] 20 mEq Tablet,Er Particles/Crystals 20 meq PO QAM Excedrin Extra Strength 250-250-65 mg Tablet 1 tab PO UD PRN (Reason: KNEE PAIN) atorvastatin 10 mg tablet 10 mg PO QAM amlodipine 5 mg tablet 5 mg PO QAM hydrochlorothiazide 12.5 mg tablet 12.5 mg PO QAM Discharge Orders: Discharge Order (Routine); Ordered 04/23/22 Ordered By: Malcolm Fisher Admission Data Admit Date/Time: 04/22/22 14:33 Attending Provider: Malcolm Fisher Admit Provider: Malcolm Fisehr Primary Care Provider: Latanya Quinonez
[2022-04-23] MEDS: DOCUSATE SODIUM 100 MG CAP PO SCH (08:47)
[2022-04-23] MEDS: PANTOprazole 40 MG TAB PO SCH (08:47)
[2022-04-23] MEDS: CALCIUM 600MG + VIT D 400 IU TAB PO SCH (08:47)
[2022-04-23] MEDS: ASPIRIN 81 MG ECTAB PO SCH (08:47)
[2022-04-23] MEDS ORDERED: POTASSIUM CHLORIDE CRTAB 20 MEQ TABCR PO SCH (09:00)
[2022-04-23] MEDS ORDERED: amLODIPine BESYLATE 5 MG TAB PO SCH (09:00)
[2022-04-23] MEDS ORDERED: predniSONE 50 MG TAB PO SCH (09:00)
[2022-04-23] MEDS ORDERED: MULTIVITAMIN TAB PO SCH (09:00)
[2022-04-23] MEDS ORDERED: ATORVASTATIN 10 MG TAB PO SCH (09:00)
[2022-04-23] MEDS ORDERED: hydroCHLOROthiazide 25 MG TAB PO SCH (09:00)
[2022-04-24] MEDS ORDERED: FOLIC ACID 1 MG TAB PO SCH (09:00)
== END 2022-04-23 14:15 | disposition home health service (06) ==
LOC: 3E 10:08 → ASU 10:08

== ENCOUNTER 2024-08-10 13:34 | Inpatient (IN) ==
[2024-08-10 14:54] LABS: Hemoglobin 14.3 g/dl (12.0-16.0); Mean Corpuscular Hemoglobin 29.3 pg (25.0-34.0); Mean Corpuscular Hgb Conc 32.5 g/dL (32.0-36.0); Mean Corpuscular Volume 90.2 fL (80.0-100.0); Platelet Count 217 K/uL (130-400); RDW Coefficient of Variation 17.2 % (11.5-14.5); RDW Standard Deviation 55.5 fL (36.4-46.3); Red Blood Count 4.88 M/uL (4.20-5.40); White Blood Count 24.64 K/ul (4.8-10.8)
[2024-08-10 15:15] LABS: Albumin Globulin Ratio 1.3 (0.9-2); Albumin Level 4.2 gm/dl (3.4-5.0); BUN Creatinine Ratio 15.8 (10-20); Calcium 9.8 mg/dl (8.6-10.3); Creatinine Clr Calc Pharmacy 32.5 ml/min; Globulin 3.2 gm/dl (2.5-4.0); Total Protein 7.4 gm/dl (6.0-8.3)
[2024-08-10 15:35] LABS: Basophils % (auto) 0.4 %; Eosinophils # (auto) 0.04 K/uL (0.00-0.50); Eosinophils % (auto) 0.2 %; Immature Granulocytes # (auto) 0.13 K/uL (0.01-0.20); Immature Granulocytes % (auto) 0.5 %; Lymphocytes # (auto) 7.54 K/uL (1.20-3.40); Lymphocytes % (auto) 30.6 %; Monocytes # (auto) 2.27 K/uL (0.11-0.59); Monocytes % (auto) 9.2 %; Neutrophils # (auto) 14.56 K/uL (1.40-6.50); Neutrophils % (auto) 59.1 %
--- NOTE | 2024-08-10 15:43 | Emergency Department Note ---
Impression & Plan Acute UTI (urinary tract infection), Sepsis, Leukocytosis, Acute kidney injury superimposed on chronic kidney disease, Hypomagnesemia ED Provider Note HISTORY OF PRESENT ILLNESS: Patient is a 77-year-old female presenting with fevers and congestion. Patient reports she has been having a fever, with Tmax up to 101.5, for the last 48 hours. She reports she has had a cough and congestion for the last week. She states she had a breast biopsy performed 4 days ago. States that she had a fever up to 100.5 today and took Tylenol around 11 AM. She states that she was instructed to go to the ER if she got a fever after her biopsy. She denies any chest pain or significant shortness of breath. Denies any nausea or vomiting. Denies any abdominal pain. She has not been on any antibiotics recently. She has been on chronic steroids for a number of years secondary to RA and is on methotrexate. She denies any dysuria or hematuria. ROS: as above PHYSICAL EXAM: Constitutional: Patient appears in no acute distress. HENT: Head: Normocephalic and atraumatic. Eyes: EOMI, PERRL Mouth/Throat: Mucous membranes moist. Neck: Trachea midline. Neck supple. Cardiovascular: RRR, No murmurs, rubs or gallops. Intact distal pulses. Pulmonary/Chest: No respiratory distress. Breath sounds clear and equal bilaterally. No wheezes or rales. Patient's left breast biopsy site is clean/dry/intact. No surrounding erythema. Abdominal: Abdomen soft, no tenderness, rebound or guarding. Musculoskeletal: No edema, tenderness or deformity noted. Skin: Warm and dry. No rash, erythema, pallor or cyanosis Psychiatric: Appropriate mood and affect for situation. Neurological: Alert and keenly responsive. CN II-XII grossly intact, moving all extremities equally and fully. MDM: - Vitals signs stable - History obtained via patient. History as above. - Chronic conditions affecting care: CKD; HTN; breast cancer; HLD - Differential diagnoses include, but are not limited to: pneumonia; viral syndrome; electrolyte abnormality; UTI; bacteremia - Order placed for continuous cardiac monitoring. At this time, monitor showed rate of 81 bpm with normal sinus rhythm, per my interpretation. - External medical records reviewed. [facility] note dated today was reviewed. Patient presented there for a fever. She was referred to the emergency department from [facility]. - Laboratory workup interpreted by myself showed leukocytosis (WBC 24.64) with neutrophil predominance; stable electrolyte other than hypomagnesemia (Mg 1.5); LUCA on CKD (Cr 1.52); elevated anion gap (12); normal procalcitonin; normal lactate - CXR negative for pneumonia, per my interpretation - UA showed evidence of infection. Patient given 2g IV rocephin. - Patient refused viral respiratory swab. - Given 1g IV magnesium for electrolyte replacement. Given 500 cc NS in ER. - Given her elevated RR, elevated WBC and UTI, patient meets sepsis criteria - Discussion was had with case resolution specialist about patient's case and need for admission - Hospitalist, Dr. Hyde, consulted for admission - [facility] ASSESSMENT AND PLAN: Diagnosis: acute UTI; leukocytosis; hypomagnesemia; sepsis; LUCA on CKD Plan: admit Past Med/Surg History Problem List (Updated 08/10/24 @ 18:31 by Idania Rainey MD) Hypomagnesemia (Acute) Acute kidney injury superimposed on chronic kidney disease (Acute) Leukocytosis (Acute) Sepsis (Acute) Acute UTI (urinary tract infection) (Acute) H/O breast biopsy Rheumatoid arthritis No neck involvement, full cervical extension/flexion ROM Lupus Possible Acute UTI Hemorrhoids Physical deconditioning Right knee pain Lymphoproliferative disorder Lymphocytosis Chronic low back pain Lumbar radicular pain Encounter for immunization Constipation Sciatica Status post left knee replacement (~04/2022) Obesity Right leg pain Encounter for pre-operative examination Lupus erythematosus (Chronic 04/11/11) Hyperlipidemia (Chronic) Hypertension (Chronic) Chronic steroid use GERD (gastroesophageal reflux disease) Stage III chronic kidney disease Hypokalemia History of exploratory thoracotomy Lip lesion Oral mucosal lesion Routine health maintenance History of left foot drop Medical History History of kidney disease Acid reflux HTN (hypertension) High cholesterol Lupus Rheumatoid arthritis Pericarditis Surgical History Dilation of esophagus History of facial surgery Hx of left breast biopsy History of colonoscopy History of esophagogastroduodenoscopy (EGD) History of tonsillectomy and adenoidectomy History of bilateral cataract extraction Status post lung surgery Family History Mother Family history of diabetes mellitus Coronary heart disease Kidney disease Hx of CABG Grandmother Family history of diabetes mellitus Father Dementia Prostate cancer Sister Coronary heart disease Denies family history of Ovarian cancer Myocardial infarction Breast cancer Colorectal cancer Social History Smoking Status: Never smoker Second Hand Exposure: No; Do You Dip or Chew Tobacco: No; Hx Alcohol Use: Yes Alcohol type: beer Hx Substance Use: No Preferred Language: Danish Communication Ability: Effective Visual Impairment: No Limitations Hearing Ability: Normal Sports Umpire Required: No Beliefs That Will Affect Care: None marital status: Current Living Situation: Spouse current occupational status: retired How many Children do You have: 1 Feels Safe at Home: Yes Childhood Exposure to Second-Hand Smoke: No Diet: regular caffeine: Yes Dental Care, Regularly: Yes Physical Activity Frequency: 1-2 Times per Week Seatbelt Use: always Sunscreen Use: Yes Assistive Devices: Bedside Commode and Walker Allergies Allergies Allergy/AdvReac Type Severity Reaction Status Date / Time No Known Allergies Allergy Verified 08/10/24 12:36 Home Meds Home Medications Medication Instructions Recorded Confirmed calcium 600 mg (as 1 tab PO BID 08/30/18 08/10/24 carbonate)-vitamin D3 5 mcg (200 unit) capsule (Calcium 600 + D(3)) methotrexate sodium 2.5 mg tablet 3 tab PO WK 08/30/18 08/10/24 omeprazole 20 mg tablet,delayed 20 mg PO BID 08/30/18 08/10/24 release folic acid 1 mg tablet 1 mg PO 6XWK 05/21/19 08/10/24 multivitamin 1 tab PO QAM 05/21/19 08/10/24 infliximab 100 mg intravenous 400 mg IV UD PRN RHEUMATOID 09/16/19 08/10/24 solution (Remicade) ARTHRITIS hydroxychloroquine 200 mg tablet 200 - 300 mg PO UD 06/11/20 08/10/24 [id number]-[id number] 250 1 tab PO UD PRN KNEE PAIN 03/16/22 08/10/24 mg-250 mg-65 mg tablet (Excedrin Extra Strength) Previous Rx's Medication Instructions Recorded Wheeled Walker #1 ea 03/22/22 lactulose 10 gram/15 mL (15 mL) 10 g (15 mL) PO DAILY PRN 11/11/22 oral solution constipation #600 mL amoxicillin 500 mg tablet 2,000 mg (4 x 500 mg) PO ONCE #4 12/06/22 tabs nystatin 100,000 unit/gram topical 1 applic topical DAILY #30 grams 05/26/23 powder amlodipine 5 mg tablet 5 mg PO QAM #90 tabs 03/04/24 atorvastatin 10 mg tablet 10 mg PO QAM #90 tabs 03/04/24 hydrochlorothiazide 12.5 mg tablet 12.5 mg PO QAM #90 tabs 03/04/24 potassium chloride 20 mEq 20 meq PO QAM #90 tabs 06/04/24 tablet,extended release(part/cryst) (Klor-Con M) hydrocortisone 2.5 % topical cream 1 applic ND DAILY PRN hemorrhoids 07/03/24 with perineal applicator #30 grams Results & Data (ED) Vital Signs Vital Signs - 24 hr 08/10/24 13:35 08/10/24 16:29 08/10/24 16:51 Temperature 36.6 C 37.4 C Temperature Source Oral Oral Pulse Rate 88 81 Pulse Rate [Apical] 84 Respiratory Rate 18 23 Blood Pressure 115/63 Blood Pressure [Right Arm] 133/80 Blood Pressure Mean 80 Blood Pressure Mean [Right Arm] 97 Blood Pressure Position [Right Arm] Semi-fowlers Pulse Oximetry 91 94 Oxygen Delivery Method Room Air Sepsis Recent Fever Within 48 Hours No Sepsis New/Unexplained Change in Mental Status N/A Sepsis Action Taken by Nursing No Action Required Laboratory Data 08/10/24 14:30 08/10/24 14:30 Lab Results 08/10/24 08/10/24 08/10/24 Range/Units 14:30 15:46 16:32 WBC 24.64 H (4.8-10.8) K/ul RBC 4.88 (4.20-5.40) M/uL Hgb 14.3 (12.0-16.0) g/dl Hct 44.0 (37.0-47.0) % MCV 90.2 (80.0-100.0) fL MCH 29.3 (25.0-34.0) pg MCHC 32.5 (32.0-36.0) g/dL RDW Std Deviation 55.5 H (36.4-46.3) fL RDW Coeff of Sherry 17.2 H (11.5-14.5) % Plt Count 217 (130-400) K/uL MPV 12.0 (9.4-12.4) fL Immature Gran % (Auto) 0.5 % Neut % (Auto) 59.1 % Lymph % (Auto) 30.6 % Wright % (Auto) 9.2 % Eos % (Auto) 0.2 % Baso % (Auto) 0.4 % Neut # (Auto) 14.56 H (1.40-6.50) K/uL Lymph # (Auto) 7.54 H (1.20-3.40) K/uL Wright # (Auto) 2.27 H (0.11-0.59) K/uL Eos # (Auto) 0.04 (0.00-0.50) K/uL Baso # (Auto) 0.10 (0.00-0.20) K/uL Immature Gran # (Auto) 0.13 (0.01-0.20) K/uL Sodium 140 (136-145) mmol/L Potassium 4.0 (3.5-5.1) mmol/L Chloride 104 (98-107) mmol/L Carbon Dioxide 24 (21-32) mmol/L Anion Gap 12 H (3-11) BUN 24 H (6-23) mg/dl Creatinine 1.52 H (0.6-1.2) mg/dl Est Cr Clr Drug Dosing 32.5 ml/min eGFR 35.11 BUN/Creatinine Ratio 15.8 (10-20) Glucose 91 (70-99(Fasting)) mg/dl Lactate 1.5 (0.4-2.0) mmol/L Calcium 9.8 (8.6-10.3) mg/dl Magnesium 1.6 L (1.7-2.4) mg/dl Total Bilirubin 1.0 (0.2-1.0) mg/dl AST 27 (13-39) U/L ALT 18 (7-52) U/L Alkaline Phosphatase 64 (34-104) U/L Total Protein 7.4 (6.0-8.3) gm/dl Albumin 4.2 (3.4-5.0) gm/dl Globulin 3.2 (2.5-4.0) gm/dl Albumin/Globulin Ratio 1.3 (0.9-2) Procalcitonin 0.16 (0-0.5) ng/ml Urine Color [place] Urine Appearance Cloudy A (Clear) Urine pH 5.0 (4.5-7.5) Ur Specific Ayr 1.029 (1.000-1.030) Urine Protein 2+ H (Negative) Urine Glucose (UA) Negative (Negative) Urine Ketones 1+ H (Negative) Urine Blood Negative (Negative) Urine Nitrite Positive A (Negative) Urine Bilirubin 2+ H (Negative) Urine Urobilinogen Negative (Negative) Ur Leukocyte Esterase 2+ H (Negative) Urine WBC (Auto) >50 H (0-5) /hpf Urine RBC (Auto) 3-5 H (0-2) /hpf U Hyaline Cast (Auto) 11-20 H (0-2) /lpf U Epithel Cells (Auto) 3-5 H (0-2) /hpf Urine Bacteria (Auto) 3+ H (None Seen) Hyaline Casts Present A (None Presnt) /lpf Urine Mucus Present A (None Prsent) Administered Medications Discontinued Medications Sodium Chloride (Nss) 500 mls @ 999 mls/hr IV .Q31M ONE Stop: 08/10/24 16:41 Last Infusion: 08/10/24 17:12 Dose: Infused Documented By: Admin: 08/10/24 16:29 Dose: 999 mls/hr Documented By: CEF Magnesium Sulfate/Dextrose (Magnesium Sulfate / D5w) 1 gm in 100 mls @ 100 mls/hr IV NOW STA Stop: 08/10/24 17:10 Last Infusion: 08/10/24 17:36 Dose: Infused Documented By: Admin: 08/10/24 16:29 Dose: 100 mls/hr Documented By: CEF Ceftriaxone Sodium (Rocephin) 2,000 mg in 50 mls @ 100 mls/hr IV NOW STA Stop: 08/10/24 17:15 Last Admin: 08/10/24 17:12 Dose: 100 mls/hr Documented By: CEF Imaging Data Radiologist's Impression: Chest X-Ray 08/10/24 15:02 EXAM: Radiograph of the Chest 1 View INDICATION: Fever and cough. TECHNIQUE: Frontal view of the chest. COMPARISON: 03/22/2022 FINDINGS: Lungs and pleural spaces: Allowing for positional differences, there is no change in extensive opacity in the right lung which appears to predominantly reflect pleural and parenchymal scarring. Basilar groundglass infiltrate not excluded. Stable mild right pleural thickening. Minimal linear scarring left midlung. No pneumothorax. Heart: Stable prominent cardiac shadow. Mediastinum: Normal contour. Bones/joints: No fracture, erosion or dislocation. Soft tissues: No abnormality noted. No radiopaque foreign body noted. Upper abdomen: No abnormality noted. IMPRESSION: Generally stable extensive chronic right pleural and parenchymal changes. Superimposed groundglass pneumonia in the right base is not excluded. ACT 112: Negative or not required by law. Electronically signed by Perlita Douglas 08-10-2024 3:47 PM Discharge Plan Visit Data Chief Complaint: Fever Stated Complaint: FEVER, BREAST BIOPSY MONDAY ED Provider: Idania Rainey Discharge Problem: Acute UTI (urinary tract infection), Sepsis, Leukocytosis, Acute kidney injury superimposed on chronic kidney disease, Hypomagnesemia Forms Stand Alone Forms: My [facility] [employer] Prescriptions Prescriptions: No Action hydroxychloroquine 200 mg tablet 200 - 300 mg PO UD Patient Comments: 200 MG EVERY MORNING AND 1 TABLET MON, WED AND FRI IN THE EVENING Rx Instructions: takes BID on mon, wed, frid amoxicillin 500 mg tablet 2,000 mg PO ONCE Qty: 4 3RF Rx Instructions: 4 tabs 1 hour prior to procedure amlodipine 5 mg tablet 5 mg PO QAM Qty: 90 1RF atorvastatin 10 mg tablet 10 mg PO QAM Qty: 90 1RF hydrochlorothiazide 12.5 mg tablet 12.5 mg PO QAM Qty: 90 1RF potassium chloride [Klor-Con M20] 20 mEq tablet,ER particles/crystals 20 meq PO QAM Qty: 90 0RF Remicade 100 mg recon soln 400 mg IV UD PRN (Reason: RHEUMATOID ARTHRITIS) Rx Instructions: IV Q 6 weeks; lactulose 10 gram/15 mL (15 mL) solution 10 g PO DAILY PRN (Reason: constipation) Qty: 600 1RF folic acid 1 mg tablet 1 mg PO 6XWK Patient Comments: EVERY DAY EXCEPT SAT multivitamin tablet 1 tab PO QAM (DME) Wheeled Walker Misc See Rx Instructions .MEDSUPPLY Qty: 1 0RF Rx Instructions: As directed nystatin 100,000 unit/gram powder 1 applic topical DAILY Qty: 30 3RF hydrocortisone 2.5 % cream with perineal applicator 1 applic ND DAILY PRN (Reason: hemorrhoids) Qty: 30 1RF methotrexate sodium 2.5 mg Tablet 3 tab PO WK Patient Comments: SAT Calcium 600 + D(3) 600 mg calcium- 200 unit Capsule 1 tab PO BID omeprazole 20 mg Tablet,Delayed Release (Dr/Ec) 20 mg PO BID Excedrin Extra Strength 250-250-65 mg Tablet 1 tab PO UD PRN (Reason: KNEE PAIN) Referrals Referrals: Latanya Quinonez MD [Primary Care Provider] -
--- NOTE | 2024-08-10 15:48 | XRay Report ---
EXAM: Radiograph of the Chest 1 View INDICATION: Fever and cough. TECHNIQUE: Frontal view of the chest. COMPARISON: 03/22/2022 FINDINGS: Lungs and pleural spaces: Allowing for positional differences, there is no change in extensive opacity in the right lung which appears to predominantly reflect pleural and parenchymal scarring. Basilar groundglass infiltrate not excluded. Stable mild right pleural thickening. Minimal linear scarring left midlung. No pneumothorax. Heart: Stable prominent cardiac shadow. Mediastinum: Normal contour. Bones/joints: No fracture, erosion or dislocation. Soft tissues: No abnormality noted. No radiopaque foreign body noted. Upper abdomen: No abnormality noted. IMPRESSION: Generally stable extensive chronic right pleural and parenchymal changes. Superimposed groundglass pneumonia in the right base is not excluded. ACT 112: Negative or not required by law. Electronically signed by Perlita Douglas 08-10-2024 3:47 PM
[2024-08-10 15:50] LABS: Magnesium 1.6 mg/dl (1.7-2.4)
[2024-08-10] MEDS: SODIUM CHLORIDE 0.9% 500 ML IV ONE (16:29)
[2024-08-10] MEDS: MAGNESIUM SULFATE / D5W 1 GM/100 ML BAG IV STA (16:29)
[2024-08-10 16:57] LABS: Appearance Urine Cloudy (Clear); Bilirubin Urine 2+ (Negative); Blood Urine Negative (Negative); Color Urine Orange; Glucose Urine UA Negative (Negative); Ketones Urine 1+ (Negative); Leukocyte Esterase Urine 2+ (Negative); Nitrite Urine Positive (Negative); Protein Urine 2+ (Negative); Specific Gravity Urine 1.029 (1.000-1.030); Urobilinogen Urine Negative (Negative); WBC Urine Automated >50 /hpf (0-5)
[2024-08-10 17:08] LABS: Bacteria Urine Automated 3+ (None Seen); Hyaline Casts Urine Present /lpf (None Presnt); Mucus Urine Present (None Prsent)
[2024-08-10] MEDS: cefTRIAXone SODIUM 2,000 MG/50 ML BAG IV STA (17:12)
--- NOTE | 2024-08-10 18:04 | History & Physical Report ---
Date of Service August 10, 2024 Assessment & Plan (1) Right lower lobe pneumonia: Plan: Productive cough x 1 week, and acute onset of fever the evening of 08/09 Leukocytosis at 24.64 with a neutrophil/lymphocytic predominance; non-hypoxic CXR on arrival cannot rule out RLL pneumonia PCT and lactate WNL Blood cultures drawn after Rocephin given Continue Rocephin 2000 mg IV q24h Azithromycin 500 mg p.o. daily; QTc okay on last EKG, repeat pending Guaifenesin 600 mg p.o. q24h Continuous pulse oximetry A.m. CBC, BMP, Mag (2) Asymptomatic bacteriuria: Plan: UA present on arrival Clinically, patient denies burning with urination, dysuria, suprapubic tenderness, or new lower back pain Follow current UCx Rocephin (as above) (3) Rheumatoid arthritis: Plan: Continue hydroxychloroquine Patient reports that she takes 200 mg tablets daily, with an additional 200 mg tablet taken on the evenings of // Hold methotrexate (patient reports she takes it once weekly on Saturdays, but missed it on the morning of 08/10) On Remicade infusion (4) Viral conjunctivitis: Plan: Erythematous eyes with some matting in the mornings that began on 08/09 No significant purulent discharge Suspect viral conjunctivitis Supportive care Warm compress as needed Eye lubricant drops as needed (5) Otitis media: Plan: Patient does note some mild ear pressure Erythematous ear canals bilateral Rocephin (as above) (6) Acute kidney injury superimposed on chronic kidney disease: Plan: Mild; hold a.m. HCTZ Encourage p.o. fluids (7) H/O breast biopsy: Plan: Biopsy on Tuesday 08/07 with new diagnosis of breast cancer (8) Lymphoproliferative disorder: (9) Stage III chronic kidney disease: (10) GERD (gastroesophageal reflux disease): (11) Hypomagnesemia: (12) Chronic low back pain: Plan [facility] Full code Regular diet VTE PPx: Heparin 5000u SQ q12h History of Present Illness Chief Complaint: Fever Primary Care Provider: Latanya Quinonez MD Milka is a pleasant 78-year-old female with PMH of stage III CKD, GERD, rheumatoid arthritis, chronic steroid use, HLD, HTN and lymphoproliferative disorder. She presented on 08/10 after she developed a fever the night prior. Patient reports she has had a productive cough x 1 week, which she might of picked up from her . She went to have a breast biopsy to check for cancer on Tuesday 08/07, and was told that if she were to develop a fever she should go to the ER. Last night before bed, she developed a fever, and when she checked around 11 PM it was around 101.5 F. She took Tylenol that night, as well as before going to [facility] today. Patient only took her hy droxychloroquine, prednisone, and Lipitor this morning; no other medications. The day prior, she reports that she coughed up/threw up her morning medications due to phlegm. She denies any burning with urination, dysuria, suprapubic tenderness, new lower back pain, or UTI symptoms. At this time, she reports that most of her symptoms appear to be are respiratory. She denies SOB at rest, with exertion, or when she lies flat on her back. Her main concerns are cough and fever. She denies smoking, tobacco use, recent alcohol use. She does not use supplemental oxygen at baseline or CPAP at night. Additionally, she does have some throat pain secondary to coughing, as well as ear pressure, and watery/matted eyes x 1 day. Patient's vitals are stable at time of admission. ED course: Magnesium sulfate 1 g IV NSS 500 mL IV Rocephin 2000 mg IV ROS: Patient endorses fever, watery eyes/matted shut upon waking, lightheadedness with standing (chronic), headache, congestion, coughing up phlegm (dark yellow), and constipation. Patient denies chills, night-sweats, chest pain, SOB, pleuritic CP, hematemesis, abdominal pain, burning with urination, dysuria, blood in the urine/stool, new lower back pain, or numbness/tingling in the arm or legs. Allergies Allergy/AdvReac Type Severity Reaction Status Date / Time No Known Allergies Allergy Verified 08/10/24 12:36 Home Medications Medication Instructions Recorded Confirmed Type calcium 600 mg (as 1 tab PO BID 08/30/18 08/10/24 History carbonate)-vitamin D3 5 mcg (200 unit) capsule (Calcium 600 + D(3)) methotrexate sodium 2.5 mg tablet 3 tab PO WK 08/30/18 08/10/24 History omeprazole 20 mg tablet,delayed 20 mg PO BID 08/30/18 08/10/24 History release folic acid 1 mg tablet 1 mg PO [id number] 05/21/19 08/10/24 History multivitamin 1 tab PO QAM 05/21/19 08/10/24 History infliximab 100 mg intravenous 400 mg IV UD PRN RHEUMATOID 09/16/19 08/10/24 History solution (Remicade) ARTHRITIS hydroxychloroquine 200 mg tablet 200 - 300 mg PO UD 06/11/20 08/10/24 History dndlwcy-jhjjniifndehs-jybjfhfb 250 1 tab PO UD PRN KNEE PAIN 03/16/22 08/10/24 History mg-250 mg-65 mg tablet (Excedrin Extra Strength) Wheeled Walker #1 ea 03/22/22 08/10/24 Rx nystatin 100,000 unit/gram topical 1 applic topical DAILY #30 grams 05/26/23 08/10/24 Rx powder amlodipine 5 mg tablet 5 mg PO QAM #90 tabs 03/04/24 08/10/24 Rx atorvastatin 10 mg tablet 10 mg PO QAM #90 tabs 03/04/24 08/10/24 Rx hydrochlorothiazide 12.5 mg tablet 12.5 mg PO QAM #90 tabs 03/04/24 08/10/24 Rx potassium chloride 20 mEq 20 meq PO QAM #90 tabs 06/04/24 08/10/24 Rx tablet,extended release(part/cryst) (Klor-Con M) hydrocortisone 2.5 % topical cream 1 applic PA DAILY PRN hemorrhoids 07/03/24 08/10/24 Rx with perineal applicator #30 grams amoxicillin 500 mg tablet 2,000 mg PO ONCE PRN Other 08/10/24 08/10/24 History lactulose 10 gram/15 mL (15 mL) 10 g PO UD PRN constipation 08/10/24 08/10/24 History oral solution Past Med/Surg History Problem List (Updated 08/10/24 @ 18:52 by Yahir Manuel PA-C) Viral conjunctivitis Otitis media Asymptomatic bacteriuria Right lower lobe pneumonia Hypomagnesemia (Acute) Acute kidney injury superimposed on chronic kidney disease (Acute) Leukocytosis (Acute) Sepsis (Acute) H/O breast biopsy Rheumatoid arthritis No neck involvement, full cervical extension/flexion ROM Lupus Possible Hemorrhoids Physical deconditioning Right knee pain Lymphoproliferative disorder Lymphocytosis Chronic low back pain Lumbar radicular pain Encounter for immunization Constipation Sciatica Status post left knee replacement (~04/2022) Obesity Right leg pain Encounter for pre-operative examination Lupus erythematosus (Chronic 04/11/11) Hyperlipidemia (Chronic) Hypertension (Chronic) Chronic steroid use GERD (gastroesophageal reflux disease) Stage III chronic kidney disease Hypokalemia History of exploratory thoracotomy Lip lesion Oral mucosal lesion Routine health maintenance History of left foot drop Medical History (Updated 08/10/24 @ 18:52 by Yahir Manuel PA-C) History of kidney disease CKD Stage III, Follows with [facility] nephro Hx LUCA r/t e. coli infection Acid reflux HTN (hypertension) High cholesterol Pericarditis Hx Surgical History (Updated 08/10/24 @ 18:06 by Yahir Manuel PA-C) Dilation of esophagus History of facial surgery 1970s plastic surgery Hx of left breast biopsy Benign cyst History of colonoscopy History of esophagogastroduodenoscopy (EGD) History of tonsillectomy and adenoidectomy History of bilateral cataract extraction Status post lung surgery "undetermined-found scarring from arthritis" Family History Mother Family history of diabetes mellitus Coronary heart disease Kidney disease Hx of CABG Grandmother Family history of diabetes mellitus Father Dementia Prostate cancer Sister Coronary heart disease Denies family history of Ovarian cancer Myocardial infarction Breast cancer Colorectal cancer Social History Smoking Status: Never smoker Second Hand Exposure: No; Do You Dip or Chew Tobacco: No; Hx Alcohol Use: Yes Alcohol type: beer Hx Substance Use: No Preferred Language: Divehi Communication Ability: Effective Visual Impairment: No Limitations Hearing Ability: Normal Waiter/Waitress Cafeteria Required: No Beliefs That Will Affect Care: None marital status: Current Living Situation: Spouse current occupational status: retired How many Children do You have: 1 Feels Safe at Home: Yes Childhood Exposure to Second-Hand Smoke: No Diet: regular caffeine: Yes Dental Care, Regularly: Yes Physical Activity Frequency: 1-2 Times per Week Seatbelt Use: always Sunscreen Use: Yes Assistive Devices: Bedside Commode and Walker Review of Systems Review of Systems: See HPI above Physical Exam Physical Exam: General: no acute distress; pleasant affect; non-toxic appearing; well- nourished; cooperative; SpO2 94% on RA HEENT: normocephalic, atraumatic; conjunctiva are erythematous bilaterally with some matting; PERRLA w/ EOMs intact; vision and hearing grossly intact; oral pharynx coral pink; external ear canals are erythematous bilaterally, with some bulging of the TMs Neck: supple; trachea midline Skin: warm, dry without signs of tenting; no cyanosis; no rashes, bruising, lesions, or erythema noted CV: chest wall NTP; RRR; S1/S2 normal; no murmurs/rubs/gallops; pulses intact and symmetric at radial, DP, and PT Lungs: no acute respiratory distress; symmetrical chest wall expansion; clear breath sounds across all lung garcia w/o adventitious sounds; no wheezing ABD: Soft, NTP; BS present; no rebound/guarding; no distention MSK: no tics or fasciculations; no edema noted in the LEs b/l, nonerythematous Neuro: A&Ox3; normal mood and affect; fluent speech; no focal deficits; sensation grossly intact in the LEs b/l Eyes Ears Cough Results & Data Results & Data Vital Signs (Past 12 Hours) Vital Signs Temp Pulse Pulse Resp BP BP Pulse Ox 08/10/24 16:51 81 08/10/24 16:29 37.4 C 84 23 133/80 94 08/10/24 13:35 36.6 C 88 18 115/63 91 O2 Del Method 08/10/24 16:51 08/10/24 16:29 Room Air 08/10/24 13:35 Laboratory Results Abnormal lab results 08/10/24 08/10/24 Range/Units 14:30 16:32 WBC 24.64 H (4.8-10.8) K/ul RDW Std Deviation 55.5 H (36.4-46.3) fL RDW Coeff of Sherry 17.2 H (11.5-14.5) % Neut # (Auto) 14.56 H (1.40-6.50) K/uL Lymph # (Auto) 7.54 H (1.20-3.40) K/uL Owsley # (Auto) 2.27 H (0.11-0.59) K/uL Anion Gap 12 H (3-11) BUN 24 H (6-23) mg/dl Creatinine 1.52 H (0.6-1.2) mg/dl Magnesium 1.6 L (1.7-2.4) mg/dl Urine Appearance Cloudy A (Clear) Urine Protein 2+ H (Negative) Urine Ketones 1+ H (Negative) Urine Nitrite Positive A (Negative) Urine Bilirubin 2+ H (Negative) Ur Leukocyte Esterase 2+ H (Negative) Urine WBC (Auto) >50 H (0-5) /hpf Urine RBC (Auto) 3-5 H (0-2) /hpf U Hyaline Cast (Auto) 11-20 H (0-2) /lpf U Epithel Cells (Auto) 3-5 H (0-2) /hpf Urine Bacteria (Auto) 3+ H (None Seen) Hyaline Casts Present A (None Presnt) /lpf Urine Mucus Present A (None Prsent) Diagnostic Findings Chest X-Ray 08/10/24 15:02 EXAM: Radiograph of the Chest 1 View INDICATION: Fever and cough. TECHNIQUE: Frontal view of the chest. COMPARISON: 03/22/2022 FINDINGS: Lungs and pleural spaces: Allowing for positional differences, there is no change in extensive opacity in the right lung which appears to predominantly reflect pleural and parenchymal scarring. Basilar groundglass infiltrate not excluded. Stable mild right pleural thickening. Minimal linear scarring left midlung. No pneumothorax. Heart: Stable prominent cardiac shadow. Mediastinum: Normal contour. Bones/joints: No fracture, erosion or dislocation. Soft tissues: No abnormality noted. No radiopaque foreign body noted. Upper abdomen: No abnormality noted. IMPRESSION: Generally stable extensive chronic right pleural and parenchymal changes. Superimposed groundglass pneumonia in the right base is not excluded. ACT 112: Negative or not required by law. Electronically signed by Perlita Douglas 08-10-2024 3:47 PM ECG Additional Comments: ECG ordered, pending Code Status & VTE Plan Code Status Full code (discussed with both patient and patient's at bedside) VTE Prophylaxis Plan VTE Prophylaxis will be ordered: Yes Supervising Physician Co-Signing Physician Notes Patient seen and examined, chart reviewed, case discussed with Yahir Manuel PA-C and I agree with the assessment and plan as above except as otherwise noted Labs and images reviewed Milka is a 78-year-old female with a past medical history of of GERD, CKD 3, recently diagnosed breast cancer, rheumatoid arthritis on Remicade, CLL on surveillance currently not meeting indications for treatment presents with fever, cough, congestion, and infected appearing UA. She has not had dysuria/hematuria/polyuria/urgency. She reports no urinary symptoms at all and feels she is voiding normally. She has had the cough congestion and sputum p roduction as noted and has felt a little short of breath the last few days consistent with pneumonia. - Leukocytosis of 24, PCT is pending. Patient has predominantly respiratory symptoms with a possible right basilar pneumonia on x-ray. Suspect her white count and fever are coming from pneumonia. She does have an infected versus contaminated appearing UA with nitrates and bacteria count, although some epithelial cells but does not have any dysuria or hematuria. Suspect this is asymptomatic bacteriuria. Symptoms are more consistent with pneumonia, will continue Rocephin with azithromycin primarily for suspected CAP Patient with no additional questions at bedside. Agree with above. PG Care Time/CCT Total # of Minutes Spent Total Time Spent with Patient: Total time spent is greater than 50% in coordination of care (as documented) at patient's floor/unit and/or counseling patient: [place] [address] INT INP/OBS CARE MIN Patient Type Established History Comprehensive Exam Comprehensive Medical Decision Making High Complexity Diagnoses Right lower lobe pneumonia J18.9 Asymptomatic bacteriuria R82.71 Rheumatoid arthritis M06.9 Viral conjunctivitis B30.9 Otitis media H66.90 Acute kidney injury superimposed on chronic kidney disease N17.9; N18.9 H/O breast biopsy Z98.890 Lymphoproliferative disorder D47.9 Stage 3 chronic kidney disease, unspecified whether stage 3a or 3b CKD N18.30 Chronic kidney disease stage 3 subtype: unspecified whether 3a or 3b GERD (gastroesophageal reflux disease) K21.9 Hypomagnesemia E83.42 Chronic low back pain, unspecified back pain laterality, unspecified whether sciatica present M54.50; G89.29 Back pain laterality: unspecified Sciatica presence: unspecified whether sciatica present (9) Stage III chronic kidney disease Chronic kidney disease stage 3 subtype: unspecified whether 3a or 3b Qualified Code(s): N18.30 - Chronic kidney disease, stage 3 unspecified (12) Chronic low back pain Back pain laterality: unspecified Sciatica presence: unspecified whether sciatica present Qualified Code(s): M54.50 - Low back pain, unspecified; G89.29 - Other chronic pain
[2024-08-10] MEDS: AZITHROMYCIN 250 MG TAB PO ONE (19:07)
[2024-08-10 20:30] LABS: Adenovirus PCR Not Detected (NotDetected); Bordetella parapertussis PCR Not Detected (NotDetected); Bordetella pertussis PCR Not Detected (NotDetected); Chlamydia pneumoniae PCR Not Detected (NotDetected); Coronavirus 229E PCR Not Detected (NotDetected); Coronavirus CoV-2 (COVID19)PCR Not Detected (NotDetected); Coronavirus HKU1 PCR Not Detected (NotDetected); Coronavirus NL63 PCR Not Detected (NotDetected); Coronavirus OC43PCR Not Detected (NotDetected); Human Metapneumovirus PCR Not Detected (NotDetected); Influenza A PCR Not Detected (NotDetected); Influenza B PCR Not Detected (NotDetected); Mycoplasma pneumoniae PCR Not Detected (NotDetected); Parainfluenza Virus 1 PCR Not Detected (NotDetected); Parainfluenza Virus 2 PCR Not Detected (NotDetected); Parainfluenza Virus 3 PCR Not Detected (NotDetected); Parainfluenza Virus 4 PCR Not Detected (NotDetected); Respiratory Syncytial VirusPCR Not Detected (NotDetected); Rhinovirus/Enterovirus PCR Not Detected (NotDetected)
[2024-08-10] MEDS ORDERED: ONDANSETRON INJ 2 MG/ML 2 ML VIAL IV PRN (22:12)
[2024-08-10] MEDS ORDERED: ARTIFICIAL TEARS OPB PRN (22:12)
[2024-08-10] MEDS: guaiFENesin 600 MG TABCR PO SCH (22:51)
[2024-08-10] MEDS: guaiFENesin/DEXTROM SYRUP 100MG/10MG 5ML UDC PO PRN (22:51)
[2024-08-10] MEDS: ACETAMINOPHEN 325 MG TAB PO PRN (22:52)
[2024-08-10] MEDS: HEPARIN SOD 5,000 UNIT/0.5 ML VIAL SQ SCH (23:19)
[2024-08-11] MEDS ORDERED: ALBUT/IPRATROP 3MG/0.5MG NEB 3 ML VIAL NEB PRN (01:54)
[2024-08-11 07:11] LABS: Hematocrit (blood only) 37.2 % (37.0-47.0); Hemoglobin 11.8 g/dl (12.0-16.0); Mean Corpuscular Hemoglobin 28.9 pg (25.0-34.0); Mean Corpuscular Hgb Conc 31.7 g/dL (32.0-36.0); Mean Corpuscular Volume 91.2 fL (80.0-100.0); Mean Platelet Volume 11.6 fL (9.4-12.4); Platelet Count 167 K/uL (130-400); RDW Coefficient of Variation 17.2 % (11.5-14.5); RDW Standard Deviation 55.8 fL (36.4-46.3); Red Blood Count 4.08 M/uL (4.20-5.40); White Blood Count 17.38 K/ul (4.8-10.8)
[2024-08-11 07:38] LABS: BUN Creatinine Ratio 21.4 (10-20); Calcium 8.4 mg/dl (8.6-10.3); Creatinine Clr Calc Pharmacy 35.6 ml/min; Magnesium 1.9 mg/dl (1.7-2.4); Potassium 3.4 mmol/L (3.5-5.1)
[2024-08-11] MEDS: AZITHROMYCIN 250 MG TAB PO SCH (07:45)
[2024-08-11] MEDS: amLODIPine BESYLATE 5 MG TAB PO SCH (07:45)
[2024-08-11] MEDS: FOLIC ACID 1 MG TAB PO SCH (07:45)
[2024-08-11] MEDS: ATORVASTATIN 10 MG TAB PO SCH (07:45)
--- NOTE | 2024-08-11 07:49 | Hospitalist Progress Note ---
Date of Service August 11, 2024 Assessment & Plan (1) Fever: Plan: initial concern for pneumonia, clinically has Productive cough x 1 week, chronic chest xray changes and acute onset of fever the evening of 08/09 gram positive bacteremia PCT Respiratory Biofire and lactate WNL CXR has chronic changes, Blood cultures drawn after antibiotics, positive fro gram positive, repeat culture 08/12 Continue Rocephin 2000 mg IV q24h Azithromycin 500 mg p.o. daily; QTc okay on last EKG, repeat pending viral conjuncitivits, may be indicator of viral source of infection h/o breast biopsy, site does not appear to be source of fever Biopsy on Tuesday 08/07 with new diagnosis of breast cancer (2) Rheumatoid arthritis: Plan: Continue hydroxychloroquine Patient reports that she takes 200 mg tablets daily, with an additional 200 mg tablet taken on the evenings of // Hold methotrexate (patient reports she takes it once weekly on Saturdays, but missed it on the morning of 08/10) On Remicade infusion (3) Acute kidney injury superimposed on chronic kidney disease: Plan: H/o CKD3 Mild sofía ; hold a.m. HCTZ Encourage p.o. 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, follows CCP no current treatment Plan hypomagnesemia replete , hypokalemia replete Full code Regular diet VTE PPx: Heparin 5000u SQ q12h Admission and Anticipated Discharge Date Admission Date: August 10, 2024 Subjective PT states she if feeling better leukocytosis reduced biopsy site still non tender Physical Exam Physical Exam: pt with left lower lung with rhonchi, no respiratory distress Results & Data Results & Data Vital Signs (Past 12 Hours) Vital Signs Temp Pulse Pulse Pulse Resp BP BP 08/11/24 07:19 08/11/24 03:27 97.5 F L 81 20 109/67 08/11/24 01:53 08/11/24 01:53 08/10/24 22:38 08/10/24 22:38 98.4 F 103 H 18 160/79 H 08/10/24 22:23 96 H 08/10/24 21:55 97 H 24 122/78 08/10/24 21:23 91 H 16 160/82 H Pulse Ox O2 Del Method O2 Flow Rate 08/11/24 07:19 Nasal Cannula 4 08/11/24 03:27 96 Nasal Cannula 4 08/11/24 01:53 94 Nasal Cannula 4 08/11/24 01:53 88 L Room Air 08/10/24 22:38 Room Air 08/10/24 22:38 92 Room Air 08/10/24 22:23 08/10/24 21:55 94 Room Air 08/10/24 21:23 94 Room Air Laboratory Results review cbc review chemistry PG Care Time/CCT Total # of Minutes Spent Total Time Spent with Patient: Total time spent is greater than 50% in coordination of care (as documented) at patient's floor/unit and/or counseling patient: Coding Level of Care Code 87682 SUB INP/OBS CARE 3/50MIN Diagnoses Fever R50.9 Rheumatoid arthritis M06.9 Acute kidney injury superimposed on chronic kidney disease N17.9; N18.9 Lymphoproliferative disorder D47.9
[2024-08-11 08:09] LABS: Basophils # (auto) 0.05 K/uL (0.00-0.20); Basophils % (auto) 0.3 %; Eosinophils # (auto) 0.08 K/uL (0.00-0.50); Eosinophils % (auto) 0.5 %; Immature Granulocytes # (auto) 0.07 K/uL (0.01-0.20); Immature Granulocytes % (auto) 0.4 %; Lymphocytes # (auto) 5.53 K/uL (1.20-3.40); Lymphocytes % (auto) 31.8 %; Monocytes % (auto) 10.9 %; Neutrophils # (auto) 9.75 K/uL (1.40-6.50); Neutrophils % (auto) 56.1 %; Smudge Cells Present
[2024-08-11] MEDS: POTASSIUM CHLORIDE CRTAB 20 MEQ TABCR PO STA (08:18)
[2024-08-11 09:38] LABS: A calco-baum cmplx NotReported Not Detected (NotDetected); Bact fragilis Not Reported Not Detected (NotDetected); Blood Culture Id Panel PCR Panel Negative (NotDetected); C auris Not Reported Not Detected (NotDetected); Calbicans Not Reported Not Detected (NotDetected); Candida glabrata Not Reported Not Detected (NotDetected); Candida krusei Not Reported Not Detected (NotDetected); Cneoformans/gatti Not Reported Not Detected (NotDetected); Cparapsilosis Not Reported Not Detected (NotDetected); E cloacae compx Not Reported Not Detected (NotDetected); Efaecalis Not Reported Not Detected (NotDetected); Efaecium Not Reported Not Detected (NotDetected); Enterobacterales Not Reported Not Detected (NotDetected); Escherichia coli Not Reported Not Detected (NotDetected); H influenzae Not Reported Not Detected (NotDetected); K aerogenes Not Reported Not Detected (NotDetected); Koxytoca Not Reported Not Detected (NotDetected); Kpneumoniae grp Not Reported Not Detected (NotDetected); Lmonocyt Not Reported Not Detected (NotDetected); N meningitidis Not Reported Not Detected (NotDetected); P aeruginosa Not Reported Not Detected (NotDetected); Proteus spp Not Reported Not Detected (NotDetected); Salmonella spp Not Reported Not Detected (NotDetected); Staph lugdunensis Not Reported Not Detected (NotDetected); Staph spp. Not Reported Not Detected (NotDetected); Staphaureus Not Reported Not Detected (NotDetected); Staphepi Not Reported Not Detected (NotDetected); Stenmaltophilia Not Reported Not Detected (NotDetected); Strep agal(GrpB) Not Reported Not Detected (NotDetected); Strep pneum Not Reported Not Detected (NotDetected); Strep pyog (GrpA) Not Reported Not Detected (NotDetected); Strep spp Not Reported Not Detected (NotDetected)
[2024-08-11] MEDS: HYDROCORTISONE SOD 50 MG in SYRINGE 0 ML IV ONE ×2 (11:26→16:04)
[2024-08-11] MEDS: cefTRIAXone SODIUM 2,000 MG/50 ML BAG IV SCH (16:06)
[2024-08-12 06:28] LABS: Hematocrit (blood only) 33.9 % (37.0-47.0); Mean Corpuscular Hemoglobin 28.9 pg (25.0-34.0); Mean Corpuscular Hgb Conc 32.4 g/dL (32.0-36.0); Mean Corpuscular Volume 89.2 fL (80.0-100.0); Platelet Count 201 K/uL (130-400); RDW Coefficient of Variation 16.7 % (11.5-14.5); RDW Standard Deviation 53.9 fL (36.4-46.3); White Blood Count 17.75 K/ul (4.8-10.8)
[2024-08-12 06:36] LABS: BUN Creatinine Ratio 21.6 (10-20); Calcium 8.3 mg/dl (8.6-10.3); Creatinine Clr Calc Pharmacy 36.8 ml/min; Potassium 3.6 mmol/L (3.5-5.1)
[2024-08-12 06:58] LABS: ALC (manual) 3.91 K/uL (1.2-3.4); ANC (manual) 11.54 K/uL (1.4-6.5); Lymphocytes # (manual) 3.91 K/uL (1.2-3.4); Lymphocytes % (manual) 22 %; Monocytes # (manual) 2.31 K/uL (0.11-0.59); Monocytes % (manual) 13 %; Neutrophils # (manual) 11.54 K/uL (1.40-6.50); Neutrophils % (manual) 65 %; RBC Morphology Unremarkable
[2024-08-12] MEDS: predniSONE 20 MG TAB PO SCH (07:36)
[2024-08-12] MEDS: HYDROXYCHLOROQUINE SULFATE 200 MG TAB PO SCH (07:36)
--- NOTE | 2024-08-12 22:29 | Hospitalist Progress Note ---
Date of Service August 12, 2024 Assessment & Plan (1) Fever: Plan: initial concern for pneumonia, clinically has Productive cough x 1 week, chronic chest xray changes and acute onset of fever the evening of 08/09 gram positive bacteremia PCT Respiratory Biofire and lactate WNL CXR has chronic changes, Blood cultures drawn after antibiotics, positive fro gram positive, repeat culture 08/12 Continue Rocephin 2000 mg IV q24h Azithromycin 500 mg p.o. daily; QTc okay on last EKG, repeat pending viral conjuncitivits, may be indicator of viral source of infection h/o breast biopsy, site does not appear to be source of fever Biopsy on Tuesday 08/07 with new diagnosis of breast cancer Awaiting repeat blood cultures. (2) Rheumatoid arthritis: Plan: Continue hydroxychloroquine Patient reports that she takes 200 mg tablets daily, with an additional 200 mg tablet taken on the evenings of // Hold methotrexate (patient reports she takes it once weekly on Saturdays, but missed it on the morning of 08/10) On Remicade infusion (3) Acute kidney injury superimposed on chronic kidney disease: Plan: H/o CKD3 Mild sofía ; hold a.m. HCTZ Encourage p.o. 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 Physical Exam Physical Exam: NAD. Heart: RRR no respiratory distress Results & Data Results & Data Vital Signs (Past 12 Hours) Vital Signs Temp Pulse Pulse Resp BP Pulse Ox O2 Del Method 08/12/24 22:15 Nasal Cannula 08/12/24 20:12 36.7 C 78 18 141/83 H 96 Nasal Cannula 08/12/24 16:26 78 08/12/24 15:02 36.7 C 77 18 130/73 92 Nasal Cannula O2 Flow Rate 08/12/24 22:15 4 08/12/24 20:12 4 08/12/24 16:26 08/12/24 15:02 4 PG Care Time/CCT Total # of Minutes Spent Total Time Spent with Patient: Total time spent is greater than 50% in coordination of care (as documented) at patient's floor/unit and/or counseling patient: Coding Level of Care Code 06736 SUB INP/OBS CARE 235MIN Diagnoses Fever R50.9 Rheumatoid arthritis M06.9 Acute kidney injury superimposed on chronic kidney disease N17.9; N18.9 Lymphoproliferative disorder D47.9
[2024-08-13 06:39] LABS: Hematocrit (blood only) 34.3 % (37.0-47.0); Hemoglobin 11.1 g/dl (12.0-16.0); Mean Corpuscular Hgb Conc 32.4 g/dL (32.0-36.0); Mean Corpuscular Volume 89.6 fL (80.0-100.0); Mean Platelet Volume 11.8 fL (9.4-12.4); Platelet Count 222 K/uL (130-400); RDW Coefficient of Variation 16.6 % (11.5-14.5); RDW Standard Deviation 53.4 fL (36.4-46.3); Red Blood Count 3.83 M/uL (4.20-5.40); White Blood Count 17.22 K/ul (4.8-10.8)
[2024-08-13 07:02] LABS: C Reactive Protein 11.11 mg/dl (0-0.5); Calcium 8.6 mg/dl (8.6-10.3); Creatinine Clr Calc Pharmacy 40.4 ml/min; Potassium 3.5 mmol/L (3.5-5.1)
[2024-08-13 07:57] LABS: Basophils # (auto) 0.04 K/uL (0.00-0.20); Basophils % (auto) 0.2 %; Eosinophils # (auto) 0.33 K/uL (0.00-0.50); Eosinophils % (auto) 1.9 %; Immature Granulocytes # (auto) 0.09 K/uL (0.01-0.20); Immature Granulocytes % (auto) 0.5 %; Lymphocytes # (auto) 6.45 K/uL (1.20-3.40); Lymphocytes % (auto) 37.5 %; Monocytes # (auto) 1.69 K/uL (0.11-0.59); Monocytes % (auto) 9.8 %; Neutrophils # (auto) 8.62 K/uL (1.40-6.50); Neutrophils % (auto) 50.1 %; Smudge Cells Present
[2024-08-13] MEDS: POTASSIUM CHLORIDE CRTAB 20 MEQ TABCR PO STA (10:22)
[2024-08-13] MEDS: HEPARIN SOD 5,000 UNIT/0.5 ML VIAL SQ SCH (10:25)
[2024-08-13] MEDS: FUROSEMIDE INJ 20 MG/2 ML VIAL IV ONE (10:41)
--- NOTE | 2024-08-13 11:04 | XRay Report ---
XR chest 2V PA/lateral HISTORY: 78 years-old Female pneumonia acute shortness of breath COMPARISON: 08/10/2024, 07/01/2013. TECHNIQUE: PA and lateral views of the chest FINDINGS: Cardiac silhouette is enlarged. Unchanged right pleural calcifications with possible small right pleu ral effusion. Additionally, there are probable airspace opacities throughout the right lung also is i n the left lung base. Probable trace left pleural effusion. No pneumothorax. Degenerative changes of the shoulders and spine. IMPRESSION: 1. Chronic right lung volume loss with pleural calcifications redemonstrated. 2. Probable left lung base and right lung airspace opacities again noted. 3. Cardiomegaly without overt pulmonary edema. ACT 112: Negative or not required by law. The above report was generated using voice recognition software. It may contain grammatical, syntax o r spelling errors. Electronically signed by: Lino Doss M.D. 08/13/2024 11:02 AM
--- NOTE | 2024-08-13 11:56 | Electrocardiogram Report ---
Test Reason : Blood Pressure : */* mmHG Vent. Rate : 81 BPM Atrial Rate : 81 BPM P-R Int : 160 ms QRS Dur : 96 ms QT Int : 356 ms P-R-T Axes : 42 -13 44 degrees QTcB Int : 413 ms Poor data quality, interpretation may be adversely affected Normal sinus rhythm Low voltage QRS Borderline ECG When compared with ECG of 22-Mar-2022 14:47, No significant change was found Confirmed by Flaco Cardozo ([id number]) on 08/13/2024 11:55:58 AM Referred By: REFERRED SELF Confirmed By: Flaco Cardozo
--- NOTE | 2024-08-13 22:28 | Hospitalist Progress Note ---
Date of Service August 13, 2024 Assessment & Plan (1) Fever: Plan: initial concern for pneumonia, clinically has Productive cough x 1 week, chronic chest xray changes and acute onset of fever the evening of 08/09 gram positive bacteremia PCT Respiratory Biofire and lactate WNL CXR has chronic changes, Blood cultures drawn after antibiotics, positive fro gram positive, repeat culture 08/12 Continue Rocephin 2000 mg IV q24h Azithromycin 500 mg p.o. daily; QTc okay on last EKG, repeat pending viral conjuncitivits, may be indicator of viral source of infection h/o breast biopsy, site does not appear to be source of fever Biopsy on Tuesday 08/07 with new diagnosis of breast cancer Awaiting repeat blood cultures. ordered danielle jimenez on 08/13 will consider pulm consult as oxygenation has not improved. (2) Rheumatoid arthritis: Plan: Continue hydroxychloroquine Patient reports that she takes 200 mg tablets daily, with an additional 200 mg tablet taken on the evenings of // Hold methotrexate (patient reports she takes it once weekly on Saturdays, but missed it on the morning of 08/10) On Remicade infusion (3) Acute kidney injury superimposed on chronic kidney disease: Plan: H/o CKD3 Mild sofía ; hold a.m. HCTZ Encourage p.o. 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 Physical Exam Physical Exam: NAD. Heart: RRR no respiratory distress Results & Data Results & Data Vital Signs (Past 12 Hours) Vital Signs Temp Pulse Pulse Resp BP Pulse Ox O2 Del Method 08/13/24 22:16 Nasal Cannula 08/13/24 19:59 36.5 C 85 20 125/77 95 Nasal Cannula 08/13/24 16:06 82 08/13/24 15:34 36.8 C 79 16 138/83 95 Room Air 08/13/24 11:08 36.8 C 78 18 135/78 98 Room Air O2 Flow Rate 08/13/24 22:16 4 08/13/24 19:59 4 08/13/24 16:06 11/12/24 15:34 08/13/24 11:08 PG Care Time/CCT Total # of Minutes Spent Total Time Spent with Patient: Total time spent is greater than 50% in coordination of care (as documented) at patient's floor/unit and/or counseling patient: Coding Level of Care Code 57814 SUB INP/OBS CARE 2/35MIN Diagnoses Fever R50.9 Rheumatoid arthritis M06.9 Acute kidney injury superimposed on chronic kidney disease N17.9; N18.9 Lymphoproliferative disorder D47.9
[2024-08-14 06:01] LABS: Hematocrit (blood only) 34.6 % (37.0-47.0); Mean Corpuscular Hemoglobin 28.7 pg (25.0-34.0); Mean Corpuscular Hgb Conc 31.8 g/dL (32.0-36.0); Mean Corpuscular Volume 90.3 fL (80.0-100.0); Mean Platelet Volume 11.2 fL (9.4-12.4); Platelet Count 208 K/uL (130-400); RDW Coefficient of Variation 16.4 % (11.5-14.5); RDW Standard Deviation 53.8 fL (36.4-46.3); Red Blood Count 3.83 M/uL (4.20-5.40); White Blood Count 12.55 K/ul (4.8-10.8)
[2024-08-14 06:18] LABS: BUN Creatinine Ratio 24.5 (10-20); C Reactive Protein 10.9 mg/dl (0-0.5); Calcium 8.3 mg/dl (8.6-10.3); Potassium 3.9 mmol/L (3.5-5.1)
[2024-08-14 06:57] LABS: Basophils # (auto) 0.03 K/uL (0.00-0.20); Basophils % (auto) 0.2 %; Eosinophils % (auto) 1.6 %; Immature Granulocytes # (auto) 0.07 K/uL (0.01-0.20); Immature Granulocytes % (auto) 0.6 %; Lymphocytes # (auto) 5.03 K/uL (1.20-3.40); Lymphocytes % (auto) 40.1 %; Monocytes # (auto) 1.32 K/uL (0.11-0.59); Monocytes % (auto) 10.5 %
[2024-08-14] MEDS: OPTIRAY 320 100ml IV ONE (11:17)
--- NOTE | 2024-08-14 12:35 | CT Scan Report ---
CHEST CT WITH CONTRAST CT DOSE: 817.39 mGy.cm HISTORY: Acute shortness of breath with hypoxia hypoxia/ concern for mesothelioma/ TECHNIQUE: Multiaxial CT images of the chest were performed following the IV administration of 95 cc of Optiray. A dose lowering technique was utilized adhering to the principles of ALARA. COMPARISON: Chest radiograph since 08/13/2024, 03/22/2022, CT abdomen and pelvis 04/09/2011 FINDINGS: No dominant thyroid nodule. Subcentimeter mediastinal and hilar lymph nodes. No pathologica lly enlarged lymph nodes identified. Mild cardiomegaly. Extensive coronary artery calcifications. No thoracic aortic aneurysm. The main pulmonary artery is dilated measuring 3.8 cm. No pulmonary emboli identified. Trace right pleural effusion with pleural thickening and coarse pleural calcifications of the right h emithorax. Right lung volume loss. Bronchial wall thickening with multifocal mucus plugging. Patchy g roundglass and consolidative opacities are present within the left greater than right lower lobes wit h mild linear atelectasis of the upper and right middle lobes. Minimal air-trapping. Mild nonspecific distal esophageal wall thickening. Scattered hepatic cysts. No acute fracture. Chron ic deformity of the right chest wall. Likely benign lucent foci in the proximal right humerus. IMPRESSION: 1. Bronchitis with mucous plugging and bibasilar patchy bronchopneumonia. 2. Chronic right lung volume loss with trace right pleural effusion, likely chronic pleural thickenin g with coarse pleural calcifications. 3. No pathologically enlarged lymph nodes. 4. Cardiomegaly with suggestion of pulmonary arterial hypertension. ACT 112: Negative or not required by law. Electronically signed by: Lino Doss M.D. 08/14/2024 12:33 PM
--- NOTE | 2024-08-14 14:18 | Pulmonary Consultation ---
Date of Consultation August 14, 2024 Assessment & Plan (1) Bronchopneumonia: She has evidence of bilateral bronchopneumonia, left greater than right. She is responding favorably to the current antibiotic regimen of ceftriaxone and azithromycin. Will check an MRSA screen and sputum cultures. Sputum culture is likely to be negative at this point in time as she has been on antibiotics for several days. Should she do well over the next 24 hours and her MRSA screen is negative, can likely transition her to oral cefdinir and azithromycin. I would recommend 10 days total of antibiotics. I am also going to consult speech therapy to evaluate her swallowing mechanism given the bilateral nature of the pneumonia. I would encourage early mobilization and getting out of the bed to a chair. Continue incentive spirometer several times an hour. She would benefit from a follow-up CT scan without contrast in 8 to 8 weeks to ensure resolution of the infiltrates especially in light of her recent breast cancer diagnosis. (2) Immunocompromised state: She is at risk for recurrent bronchopneumonia given her immunosuppressed state with Remicade, chronic prednisone and hydroxychloroquine. She may benefit from an outpatient immunology evaluation. I am not sure why she is on the higher dose of prednisone currently as her maintenance dose is 5 mg daily. ? Stress dose steroids due to acute infection. Will defer management of steroids to the hospitalist service. (3) Hypoxemia: Her hypoxemia has improving and nursing staff is actively weaning down her oxygen flow rate. (4) Pleural calcification: She appears to have chronic pleural calcifications predominantly on the right side going back many years based on imaging and patient's history. Etiology is unclear. Possibly related to prior asbestos exposure. This likely represents benign disease, but I would favor at least another chest x-ray in about 6 months after the above recommended CT scan. Plan Thank you for allowing me to participate in the care of this patient. Please call with questions. History of Present Illness Reason for Consultation: Pneumonia Attending Physician: Wes Dubois History of Present Illness 78-year-old female with a past medical history of GERD, rheumatoid arthritis on Remicade, 5 mg daily prednisone and hydroxychloroquine, hyperlipidemia, hypertension, CLL and CKD stage III who presented to the hospital after developing a fever the night before. She had increased cough and sputum production for about a week or 2. She notes that her has been sick as well. She denies any actively treated lung disease. She notes that about 25 years ago she had a biopsy of her right lung due to the pleural plaques seen on imaging previously. Fortunately I do not have the pathology results from the imaging from that timeframe. She was told that she had a benign disease process in her right lung. 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 She is a lifelong non-smoker. Currently, she feels her cough is improving and her shortness of breath have improved as well. Her white count has been improving. She is currently on Rocephin, azithromycin and prednisone 20 mg daily. No sputum cultures have been sent. Procalcitonin has been negative. Blood culture 08/10/2024 grew bacillus, but follow-up blood cultures have been negative. Suspect the original blood culture is likely contaminant. Allergies Allergy/AdvReac Type Severity Reaction Status Date / Time No Known Allergies Allergy Verified 08/10/24 12:36 Home Medications Medication Instructions Recorded Confirmed Type calcium 600 mg (as 1 tab PO BID 08/30/18 08/10/24 History carbonate)-vitamin D3 5 mcg (200 unit) capsule (Calcium 600 + D(3)) methotrexate sodium 2.5 mg tablet 3 tab PO WK 08/30/18 08/10/24 History omeprazole 20 mg tablet,delayed 20 mg PO BID 08/30/18 08/10/24 History release folic acid 1 mg tablet 1 mg PO 6XWK 05/21/19 08/10/24 History multivitamin 1 tab PO QAM 05/21/19 08/10/24 History infliximab 100 mg intravenous 400 mg IV UD PRN RHEUMATOID 09/16/19 08/10/24 History solution (Remicade) ARTHRITIS hydroxychloroquine 200 mg tablet 200 - 300 mg PO UD 06/11/20 08/10/24 History mgmykds-ptytnzlicennk-jegpssjf 250 1 tab PO UD PRN KNEE PAIN 03/16/22 08/10/24 History mg-250 mg-65 mg tablet (Excedrin Extra Strength) Wheeled Walker #1 ea 03/22/22 08/10/24 Rx nystatin 100,000 unit/gram topical 1 applic topical DAILY #30 grams 05/26/23 08/10/24 Rx powder amlodipine 5 mg tablet 5 mg PO QAM #90 tabs 03/04/24 08/10/24 Rx atorvastatin 10 mg tablet 10 mg PO QAM #90 tabs 03/04/24 08/10/24 Rx hydrochlorothiazide 12.5 mg tablet 12.5 mg PO QAM #90 tabs 03/04/24 08/10/24 Rx potassium chloride 20 mEq 20 meq PO QAM #90 tabs 06/04/24 08/10/24 Rx tablet,extended release(part/cryst) (Klor-Con M) hydrocortisone 2.5 % topical cream 1 applic ME DAILY PRN hemorrhoids 07/03/24 08/10/24 Rx with perineal applicator #30 grams amoxicillin 500 mg tablet 2,000 mg PO ONCE PRN Other 08/10/24 08/10/24 History lactulose 10 gram/15 mL (15 mL) 10 g PO UD PRN constipation 08/10/24 08/10/24 History oral solution Patient History Medical History (Updated 08/14/24 @ 14:11 by Steve Alberto MD) History of kidney disease CKD Stage III, Follows with [facility] nephro Hx LUCA r/t e. coli infection Acid reflux HTN (hypertension) High cholesterol Pericarditis Hx Surgical History (Updated 08/10/24 @ 18:06 by Yahir Manuel PA-C) Dilation of esophagus History of facial surgery 1970s plastic surgery Hx of left breast biopsy Benign cyst History of colonoscopy History of esophagogastroduodenoscopy (EGD) History of tonsillectomy and adenoidectomy History of bilateral cataract extraction Status post lung surgery "undetermined-found scarring from arthritis" Family History Mother Family history of diabetes mellitus Coronary heart disease Kidney disease Hx of CABG Grandmother Family history of diabetes mellitus Father Dementia Prostate cancer Sister Coronary heart disease Denies family history of Ovarian cancer Myocardial infarction Breast cancer Colorectal cancer Social History Smoking Status: Never smoker Second Hand Exposure: No; Do You Dip or Chew Tobacco: No; Hx Alcohol Use: Yes Alcohol type: beer Hx Substance Use: No Preferred Language: German Communication Ability: Effective Visual Impairment: No Limitations Hearing Ability: Normal 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 Patient is in no apparent distress. Patient is well-developed. Eyes: Pupils are equal round and reactive to light. Conjunctivae are normal. Anicteric sclera. Ears nose, mouth and throat: Nasal cannula in place. No perioral cyanosis. Neck: Trachea is midline. Visual inspection is normal. Respiratory: Mild bibasilar crackles. No increased work of breathing. Cardiovascular: Regular rate and rhythm. No murmurs. No edema. Gastrointestinal: Normal bowel sounds, soft, nontender and nondistended. No hepatosplenomegaly noted. Musculoskeletal: No cyanosis. Patient is able to move all extremities. Strength is 5 out of 5 in the upper and lower extremities. Skin: No rashes, warm dry and intact. Neurologic: No obvious focal neurological deficits seen. Psychiatric: Alert and oriented x3 with a euthymic affect. Results & Data Results & Data Vital Signs (Past 12 Hours) Vital Signs Temp Pulse Pulse Resp BP Pulse Ox O2 Del Method 08/14/24 12:08 36.6 C 68 18 127/74 95 Nasal Cannula 08/14/24 10:53 Nasal Cannula 08/14/24 07:32 36.5 C 61 18 121/70 99 Nasal Cannula 08/14/24 07:17 64 08/14/24 03:05 36.6 C 62 18 110/67 97 Nasal Cannula O2 Flow Rate 08/14/24 12:08 3 08/14/24 10:53 3 08/14/24 07:32 4 08/14/24 07:17 08/14/24 03:05 4 PG Care Time/CCT Total # of Minutes Spent Total Time Spent with Patient: Total time spent is greater than 50% in coordination of care (as documented) at patient's floor/unit and/or counseling patient: Coding Level of Care Code 18334 INT INP/OBS CARE 3/75MIN Diagnoses Bronchopneumonia J18.0 Immunocompromised state D84.9 Hypoxemia R09.02 Pleural calcification J94.8
--- NOTE | 2024-08-14 21:18 | Hospitalist Progress Note ---
Date of Service August 14, 2024 Assessment & Plan (1) Fever: Plan: initial concern for pneumonia, clinically has Productive cough x 1 week, chronic chest xray changes and acute onset of fever the evening of 08/09 gram positive bacteremia PCT Respiratory Biofire and lactate WNL CXR has chronic changes, Blood cultures drawn after antibiotics, positive fro gram positive, repeat culture 08/12 Continue Rocephin 2000 mg IV q24h Azithromycin 500 mg p.o. daily; QTc okay on last EKG, repeat pending viral conjuncitivits, may be indicator of viral source of infection h/o breast biopsy, site does not appear to be source of fever Biopsy on Tuesday 08/07 with new diagnosis of breast cancer Awaiting repeat blood cultures. ordered lasix, potasium on 08/13 placed pulm consult. Order CT scan of chest obtain sputum culture complete 10 days of antibiotics. will also obtain sputum culture (2) Rheumatoid arthritis: Plan: Continue hydroxychloroquine Patient reports that she takes 200 mg tablets daily, with an additional 200 mg tablet taken on the evenings of // Hold methotrexate (patient reports she takes it once weekly on Saturdays, but missed it on the morning of 08/10) On Remicade infusion Patient states there was question she may have lupus. (3) Acute kidney injury superimposed on chronic kidney disease: Plan: H/o CKD3 Mild sofía ; hold a.m. HCTZ Encourage p.o. 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 Patient states she is feeling better Review of Systems Review of Systems: All systems reviewed & are unremarkable except as noted in HPI & below Physical Exam Physical Exam: NAD. Heart: RRR no respiratory distress Results & Data Results & Data Vital Signs (Past 12 Hours) Vital Signs Temp Pulse Pulse Resp BP Pulse Ox O2 Del Method 08/14/24 19:50 36.7 C 82 20 134/80 95 Room Air 08/14/24 15:06 36.3 C L 79 18 134/74 92 Room Air 08/14/24 14:40 73 08/14/24 12:08 36.6 C 68 18 127/74 95 Nasal Cannula 08/14/24 10:53 Nasal Cannula O2 Flow Rate 08/14/24 19:50 08/14/24 15:06 08/14/24 14:40 08/14/24 12:08 3 08/14/24 10:53 3 PG Care Time/CCT Total # of Minutes Spent Total Time Spent with Patient: Total time spent is greater than 50% in coordination of care (as documented) at patient's floor/unit and/or counseling patient: Coding Level of Care Code 02577 SUB INP/OBS CARE 2/35MIN Diagnoses Fever R50.9 Rheumatoid arthritis M06.9 Acute kidney injury superimposed on chronic kidney disease N17.9; N18.9 Lymphoproliferative disorder D47.9
[2024-08-15 06:16] LABS: Hematocrit (blood only) 36.5 % (37.0-47.0); Hemoglobin 11.7 g/dl (12.0-16.0); Mean Corpuscular Hemoglobin 28.8 pg (25.0-34.0); Mean Corpuscular Hgb Conc 32.1 g/dL (32.0-36.0); Mean Corpuscular Volume 89.9 fL (80.0-100.0); Mean Platelet Volume 10.9 fL (9.4-12.4); Platelet Count 253 K/uL (130-400); RDW Coefficient of Variation 16.3 % (11.5-14.5); RDW Standard Deviation 52.6 fL (36.4-46.3); Red Blood Count 4.06 M/uL (4.20-5.40); White Blood Count 14.91 K/ul (4.8-10.8)
[2024-08-15 06:37] LABS: BUN Creatinine Ratio 21.6 (10-20); C Reactive Protein 6.6 mg/dl (0-0.5); Calcium 9.2 mg/dl (8.6-10.3); Creatinine Clr Calc Pharmacy 44.3 ml/min
[2024-08-15 08:00] VITALS: RESP 16; O2SAT 93
[2024-08-15] MEDS: predniSONE 5 MG TAB PO SCH (08:35)
[2024-08-15 11:50] VITALS: BP 120/67; TEMP 98
[2024-08-15 14:49] VITALS: PULSE 73
--- NOTE | 2024-08-15 14:53 | Pulmonology Progress Note ---
Date of Service August 15, 2024 Assessment & Plan (1) Bronchopneumonia: Plan: She has evidence of bilateral bronchopneumonia, left greater than right. She is responding favorably to the current antibiotic regimen of ceftriaxone and azithromycim. Sputum culture is likely to be negative at this point in time as she has been on antibiotics for several days. MRSA screen was negative. Continue cefdinir and doxycycline on discharge. Recommend 10 days total t reatment with antibiotic. I would encourage early mobilization and getting out of the bed to a chair. Continue incentive spirometer several times an hour. She would benefit from a follow-up CT scan without contrast in 8 to 10 weeks to ensure resolution of the infiltrates especially in light of her recent breast cancer diagnosis. (2) Immunocompromised state: Plan: She is at risk for recurrent bronchopneumonia given her immunosuppressed state with Remicade, chronic prednisone and hydroxychloroquine. She may benefit from an outpatient immunology evaluation. I am not sure why she is on the higher dose of prednisone currently as her maintenance dose is 5 mg daily. ? Stress dose steroids due to acute infection. Will defer management of steroids to the hospitalist service. (3) Hypoxemia: Plan: Her hypoxemia has improving and nursing staff is actively weaning down her oxygen flow rate. (4) Pleural calcification: Plan: She appears to have chronic pleural calcifications predominantly on the right side going back many years based on imaging and patient's history. Etiology is unclear. Possibly related to prior asbestos exposure. This likely represents benign disease, but I would favor at least another chest x-ray in about 6 months after the above recommended CT scan. Plan Agree with discharge home at this point in time. Pulmonary sign off. Thank you for the consult. Admission and Anticipated Discharge Date Admission Date: August 10, 2024 Subjective She is recovering quite well and is now on room air. Denies any significant chest pain. Minimal shortness of breath with exertion. Minimal cough. Review of Systems Review of Systems: All systems reviewed & are unremarkable except as noted in HPI & below Physical Exam Physical Exam: Constitutional: Patient appears to be of their stated age. Patient is in no apparent distress. Patient is well-developed. Eyes: Pupils are equal round and reactive to light. Conjunctivae are normal. Anicteric sclera. Ears nose, mouth and throat: Nasal cannula in place. No perioral cyanosis. Neck: Trachea is midline. Visual inspection is normal. Respiratory: Mild bibasilar crackles. No increased work of breathing. Cardiovascular: Regular rate and rhythm. No murmurs. No edema. Gastrointestinal: Normal bowel sounds, soft, nontender and nondistended. No hepatosplenomegaly noted. Musculoskeletal: No cyanosis. Patient is able to move all extremities. Strength is 5 out of 5 in the upper and lower extremities. Skin: No rashes, warm dry and intact. Neurologic: No obvious focal neurological deficits seen. Psychiatric: Alert and oriented x3 with a euthymic affect. Results & Data Results & Data Vital Signs (Past 12 Hours) Vital Signs Temp Pulse Pulse Resp BP Pulse Ox O2 Del Method 08/15/24 14:49 36.7 C 73 16 120/67 93 08/15/24 14:11 96 H 08/15/24 11:49 36.7 C 73 16 120/67 93 Room Air 08/15/24 07:59 36.8 C 66 16 123/55 L 93 Room Air 08/15/24 07:19 Room Air 08/15/24 07:10 85 08/15/24 03:29 36.8 C 65 20 119/59 L 95 Room Air PG Care Time/CCT Total # of Minutes Spent Total Time Spent with Patient: Total time spent is greater than 50% in coordination of care (as documented) at patient's floor/unit and/or counseling patient: Coding Level of Care Code 89702 SUB INP/OBS CARE 2/35MIN Diagnoses Bronchopneumonia J18.0 Immunocompromised state D84.9 Hypoxemia R09.02 Pleural calcification J94.8
== END 2024-08-15 15:07 | disposition home or self-care (01) | DRG 194 ==
LOC: ED 13:34 → 2N 18:30 → SUATTDRO 18:30 → 2N 21:55